=== PATIENT | male | born 1930 | race Caucasian/White ===

== ENCOUNTER 2017-01-22 11:59 | Observation (INO) | payer MEDICARE, BC ==
[2017-01-22 12:40] LABS: Hematocrit 34 % (42-52); Hemoglobin 11.7 g/dl (14.0-18.0); Mean Corpuscular HGB Conc 34 g/dl (31-36); Mean Corpuscular Hemoglobin 30 pg (27-31); Mean Corpuscular Volume 88 fL (80-94); Mean Platelet Volume 9 um3 (7.4-10.4); Red Cell Distribution Width 15 % (10.5-15); White Blood Count 5.7 10^3/ul (3.5-10.8)
[2017-01-22 13:03] LABS: Troponin I 0.01 ng/mL (<0.04)
[2017-01-22 13:20] LABS: TSH (Thyroid Stimulating Horm) 1.26 mcIU/mL (0.34-5.60)
[2017-01-22 13:27] LABS: Albumin 3.6 g/dL (3.2-5.2); Calcium 8.4 mg/dL (8.6-10.3); EGFR African American 95.5 (>60); EGFR Non-African American 74.3 (>60); Globulin 2.1 g/dL (2-4); Magnesium 1.8 mg/dL (1.9-2.7); Total Bilirubin 0.7 mg/dL (0.2-1.0); Total Protein 5.7 g/dL (6.4-8.9)
[2017-01-22] MEDS ORDERED: Lidocaine 1% INJ* 10 MG/ML 30 ML SDV ONE (13:34)
--- NOTE | 2017-01-22 14:17 | RAD ---
Indication: Loss of consciousness. CT of the brain was performed without IV contrast. Ventricular structures are midline. No midline shift is noted. Central and cortical atrophy is noted. Periventricular lucency consistent with chronic ischemic White matter change is noted. Mastoid air cells and paranasal sinuses are otherwise unremarkable. IMPRESSION: Chronic ischemic White matter change with no evidence of mass or hemorrhage.
--- NOTE | 2017-01-22 14:18 | RAD ---
HISTORY: Fall, no other history is provided COMPARISONS: January 30, 2016 TECHNIQUE: Multiple contiguous axial CT scans were obtained of the cervical spine without intravenous contrast, with coronal and sagittal multiplanar reformations. FINDINGS: BRAIN: The visualized brain is unremarkable CENTRAL CANAL: Evaluation of the central canal is limited on CT technique; however, there is no obvious canalicular mass or epidural hemorrhage. ALIGNMENT: There is trace anterolisthesis of C7 on T1. There is a scoliotic curvature of the spine VERTEBRAL BODIES: There is diffuse osteopenia. Is multilevel anterolateral marginal osteophyte formation. There is fusion of C5 and C6. There is no displaced fracture. JOINTS: There is uncovertebral, facet, and atlantoaxial osteoarthritis MUSCULATURE: Unremarkable INTERVERTEBRAL DISCS: There is diffuse loss of intervertebral disc height. AXIAL IMAGES: There is multilevel neural foraminal narrowing. There is no osseous central canal stenosis SOFT TISSUES: Carotid calcifications are noted. A left carotid stent is noted.. The prevertebral fat stripe is preserved. OTHER: None. IMPRESSION: 1. OSTEOPENIA. 2. DEGENERATIVE DISC DISEASE AND OSTEOARTHRITIS. 3. NO ACUTE OSSEOUS INJURY TO THE CERVICAL SPINE
[2017-01-22] MEDS ORDERED: Dextrose 50% Syringe 50 ML* 25 GM/50 ML SYRINGE IV PUSH PRN (15:25)
[2017-01-22] MEDS ORDERED: Acetaminophen TAB* 325 MG PO PRN (15:25)
[2017-01-22] MEDS ORDERED: Ondansetron INJ* 2 MG/ML VIAL IV PRN (15:25)
[2017-01-22] MEDS ORDERED: Magnesium Sulfate 2 GM IV* 2 GM/50 ML BAG IVPB ONE (15:25)
[2017-01-22] MEDS ORDERED: LORazepam TAB(*) 1 MG PO PRN (15:27)
[2017-01-22 15:31] LABS: Urine Bilirubin Negative (Negative); Urine Glucose 1+(50 mg/dL) (Negative); Urine Nitrite Negative (Negative)
[2017-01-22] MEDS: Insulin LISPRO* 1 UNITS UNIT SUBCUT SCH (18:32)
[2017-01-22] MEDS ORDERED: LORazepam INJ* 2 MG/ML 1 ML VIAL IV PUSH ONE (20:16)
[2017-01-22] MEDS ORDERED: LORazepam INJ* 2 MG/ML 1 ML VIAL ONE (20:21)
--- NOTE | 2017-01-22 20:48 | HP ---
CC: [facility] * HISTORY AND PHYSICAL: DATE OF ADMISSION: 01/22/17 PRIMARY CARE PROVIDER: [facility]. ATTENDING PHYSICIAN WHILE IN THE HOSPITAL: Dr. Farheen Iglesias * (report dictated by Aureliano Guerrero NP). CHIEF COMPLAINT: 1. Fall. 2. Question of syncope. HISTORY OF PRESENT ILLNESS: Please preface this report by saying that Mr. Bruno is an 86-year-old male patient with significant underlying progressively getting worse dementia. He comes in today stating that he cannot really remember what happened, he only knows that he went into the bathroom, he heard a bang. The corroborates the story, states that he did fall. It is unclear whether or not he had a syncopal episode or not. I did touch base with the patient's [facility] providers. I spoke to the nurse that was there, she said he was taken up to go to the bathroom, while in the bathroom, he had fallen. She does not believe that he had syncopized, but again cannot confirm or deny this completely. The patient denied having any chest pain today. Denies any shortness of breath. He denies any recent fevers or chills. When asking about medication changes recently, he is unaware of any, although again he does have dementia. I did touch base with the nursing staff at [facility] and they said that about 2 weeks ago, he was started on some Ativan at night and in the morning. He denied currently with me again having any fevers. There has been no diarrhea or vomiting. He does admit to having pain over his left eye where he did strike the walker, according to the nursing staff, but denies having any headache. Denies having any hip or extremity pain and denies having any abdominal discomfort now. He was evaluated in the ED. There was concern for possible syncopal episode, hospital service was asked to evaluate for admission. PAST MEDICAL HISTORY: Significant for: 1. Dementia. 2. Diabetes. 3. Hyperlipidemia. 4. Carotid artery disease. 5. Hypertension. 6. Bullous pemphigoid. 7. History of GI bleed. 8. AFib. 9. Depression. 10. BPH. 11. Insomnia. 12. SAYRA. PAST SURGICAL HISTORY: He has had: 1. Bilateral total knee replacements. 2. Tonsillectomy. 3. Hernia repair. 4. Carotid endarterectomy. 5. Quadriceps repair. 6. TURP. MEDICATIONS: His home meds according to the [facility] list includes: 1. Prednisone 10 mg a day. 2. Diovan 80 mg at bedtime. 3. Senna 1 tablet p.o. at bedtime. 4. MiraLAX 17 g p.o. daily. 5. Paxil 40 mg daily. 6. CellCept 1000 mg p.o. b.i.d. 7. Lopressor 75 mg p.o. b.i.d. 8. Melatonin 3 mg at bedtime as needed. 9. Ativan 1 mg at bedtime as needed. 10. Ativan 0.5 mg in the morning. 11. Lantus 15 units subcu q.a.m. 12. Insulin aspart 4 units subcu b.i.d. 13. Vitamin D3 50,000 units p.o. monthly. 14. Aspirin 81 mg daily. 15. Tylenol Extra Strength 1000 mg p.o. every 8 hours as needed. ALLERGIES TO MEDICATIONS: According to the list include, METFORMIN, PREDNISONE , and REPAGLINIDE. FAMILY HISTORY: Father had a history of CAD. Mother had a history of cancer. SOCIAL HISTORY: He does not smoke. He does not drink. Surrogate decision maker is his , Henrry. He resides at [facility]. REVIEW OF SYSTEMS: There is no documented fever. He denied any significant weight change. There was no double vision. He denies having any ear discharge. There is no rhinorrhea, no sore throat. No thyroid enlargement. Denied having any chest pain. There was no orthopnea, there was no nocturnal dyspnea. There is no abdominal pain. No nausea, no vomiting. No dysuria, no frequency. There was a questionable loss of consciousness. No pruritus or skin ulceration. Review of 14 systems completed, all others were negative. PHYSICAL EXAMINATION GENERAL: At this time, Mr. Bruno is an 86-year-old male patient. He is sitting in the ER stretcher. He does not appear to be in any acute distress. VITAL SIGNS: Blood pressure 133/90 with a pulse of 95, respirations 18, O2 sat 99%, temperature 97.5. HEENT: Head: Atraumatic with the exception he does have significant hematoma and laceration to the left orbit just above the left forehead, which is now again ecchymotic and it has been sutured, otherwise atraumatic. Eyes: EOMs are intact. Sclerae anicteric. NECK: Supple. Throat: Oral mucosa appeared to be dry. No oropharyngeal erythema. LUNGS: Clear to auscultation bilaterally. No wheezes, rales, or rhonchi. HEART: Sounds S1, S2. Irregularly irregular rate. No murmurs, rubs, or gallops. ABDOMEN: Soft, flat, and nontender. Bowel sounds are present. EXTREMITIES: Pulses 2+ throughout. He is able to move all 4 extremities with 5 /5 strength. NEUROLOGICAL: The patient is awake. He is alert to himself only, time and place. Window Tinter equal. Tongue midline. Speech clear. No gross focal deficits. SKIN: His skin is grossly intact with the exception he does have skin incision and sutures noted to the left orbit and to the left zygomatic arch and there is again noted to be some ecchymosis. Otherwise, skin is intact. He does have multiple abrasions to his left arm and left knee, which are covered with dressing. DIAGNOSTIC STUDIES/LAB DATA: His labs today revealed WBC of 5.7, RBC of 3.90, hemoglobin 11.7, hematocrit 34, platelet count 140. INR 0.97. Sodium 129, potassium 4, chloride of 97, bicarb 25, BUN 24, creatinine 0.96, glucose of 180 , lactate 0.9, calcium 8.4, mag 1.8. Total bili 0.7, AST 15, ALT 10, alk phos 31. Troponin 0.01. BNP . The albumin is 3.6. TSH normal at 1.26. Urine is pending. He did have a cervical spine CT, which showed osteopenia, degenerative disk disease, and osteoarthritis. No acute osseous injury of the cervical spine. Brain CT showed chronic ischemic white matter change. No evidence of mass or hemorrhage. EKG obtained today showed atrial fibrillation with an incomplete right bundle branch block, which apparently reviewed to the previous EKG and this has been similar in the past. No acute changes were noted. Old medical records were reviewed. ASSESSMENT AND PLAN: Mr. Bruno is an 86-year-old male patient coming into the hospital today with complaints of fall with concern for syncope. He will be admitted under observation status for: 1. Fall. Again, this could have been a mechanical fall. Certainly polypharmacy could have contributed to this as well as he is on Ativan twice a day. My plan is to go ahead to do a syncope workup because there was a question that he may have fainted, although seems less likely, I am going to go ahead and place him on telemetry, cycle his troponins, and get an echo. Check orthostatic blood pressures and continue to follow. 2. Urinary retention. A catheter was placed here in the ED, but I do not see there was a bladder scan done, so what I would like to do is remove the catheter , bladder scan, and check postvoid residual. If these are elevated, then we will place the Bowles back. In addition to this, he will need a Urology followup that could be done outpatient. 3. Dementia. Continue with supportive care. 4. Diabetes. He is on lispro sliding scale and Lantus. 5. Hyperlipidemia. We will continue his current medical regimen. 6. Hypertension. Continue meds as prescribed. 7. Bullous pemphigoid. Continue his meds as prescribed. 8. Carotid artery disease. Continue his aspirin. 9. History of gastrointestinal bleed. Not an active issue. We will monitor. 10. Atrial fibrillation. He is not on any blood thinners currently due to frequent falls. In addition to this, he has had bleeding episodes in the past and this has been held. 11. Depression. Continue meds as prescribed. 12. Benign prostatic hyperplasia. Again, we are going to go ahead and get post void residuals. 13. History of insomnia. We will continue to monitor and offer supportive care. 14. History of obstructive sleep apnea. We will continue his current medical regimen. 15. DVT prophylaxis. We will place him on heparin subcu. 16. Code status. DNR. TIME SPENT: On the admission was approximately 60 minutes; greater than half the time spent [id number] with the patient obtaining my history and physical, the other half the time was spent going over the plan of care with the patient and implementing plan of care. I did discuss the plan of care with my attending physician, Dr. Iglesias; she is in agreement. AURELIANO GUERRERO, MARIA ANTONIA [id number]/[facility] #: [id number] MTDD
[2017-01-22] MEDS: Mycophenolate Mofetil TAB(*) 500 MG PO SCH ×2 (21:10→21:51)
[2017-01-22] MEDS: Senna TAB PO SCH ×2 (21:10→21:24)
[2017-01-22] MEDS: Docusate CAP* 100 MG PO SCH ×2 (21:10→21:24)
[2017-01-22] MEDS: Metoprolol Tartrate TAB* 25 MG PO SCH ×2 (21:10→21:51)
[2017-01-22] MEDS ORDERED: Metoprolol Tartrate IV* 1 MG/ML 5 ML VIAL IV ONE (21:22)
[2017-01-22] MEDS: Heparin VIAL(*) 5000 UNITS/ML VIAL (FIVE THOUSAND) SUBCUT SCH (21:56)
[2017-01-23] MEDS ORDERED: LORazepam INJ* 2 MG/ML 1 ML VIAL IV PUSH ONE (03:00)
[2017-01-23] MEDS: Heparin VIAL(*) 5000 UNITS/ML VIAL (FIVE THOUSAND) SUBCUT SCH ×2 (04:57→13:19)
[2017-01-23 05:18] LABS: Hematocrit 35 % (42-52); Hemoglobin 11.7 g/dl (14.0-18.0); Mean Corpuscular HGB Conc 34 g/dl (31-36); Mean Corpuscular Hemoglobin 30 pg (27-31); Mean Corpuscular Volume 89 fL (80-94); Mean Platelet Volume 9 um3 (7.4-10.4); Red Blood Count 3.91 10^6/ul (4.0-5.4); Red Cell Distribution Width 15 % (10.5-15); White Blood Count 6.3 10^3/ul (3.5-10.8)
[2017-01-23 07:43] LABS: BUN/Creatinine Ratio 20.8 (8-20); Calcium 8.5 mg/dL (8.6-10.3); EGFR African American 90.1 (>60); Potassium 3.4 mmol/L (3.5-5.0)
--- NOTE | 2017-01-23 08:59 | RAD ---
HISTORY: Fall, confusion COMPARISONS: February 14, 2016 VIEWS:1: Single frontal portable view of the chest at 8:50 AM FINDINGS: LINES AND TUBES: None. CARDIOMEDIASTINAL SILHOUETTE: The cardiomediastinal silhouette is normal for portable technique. PLEURA: The costophrenic angles are sharp. No pleural abnormalities are noted. LUNG PARENCHYMA: There is hyperinflation. ABDOMEN: The upper abdomen is clear. There is no subphrenic gas. BONES AND SOFT TISSUES: Degenerative changes are noted along the spine. IMPRESSION: NO ACTIVE CARDIOPULMONARY DISEASE.
[2017-01-23] MEDS ORDERED: PARoxetine HCL TAB* 40 MG PO SCH (09:00)
[2017-01-23] MEDS ORDERED: QUEtiapine TAB* 25 MG PO SCH ×2 (09:00→21:00)
[2017-01-23] MEDS ORDERED: Insulin GLARGINE(*) 1 UNITS UNIT SUBCUT SCH (09:00)
[2017-01-23] MEDS ORDERED: LORazepam TAB(*) 0.5 MG PO SCH (09:00)
[2017-01-23] MEDS ORDERED: Aspirin EC Low Dose* 81 MG TAB.EC PO SCH (09:00)
[2017-01-23] MEDS ORDERED: Valsartan TAB* 80 MG PO SCH (09:00)
[2017-01-23] MEDS ORDERED: predniSONE TAB* 10 MG PO SCH (09:00)
[2017-01-23] MEDS: Insulin LISPRO* 1 UNITS UNIT SUBCUT SCH ×2 (09:24→13:27)
[2017-01-23 09:43] VITALS: BP 122/59
[2017-01-23] MEDS: Metoprolol Tartrate TAB* 25 MG PO SCH (09:58)
[2017-01-23] MEDS: Polyethylene Glycol 3350* 17 GM PACKET PO SCH ×2 (10:00→13:19)
[2017-01-23] MEDS: Mycophenolate Mofetil TAB(*) 500 MG PO SCH (10:21)
[2017-01-23] MEDS ORDERED: Potassium Chlor TAB* 20 MEQ TAB.ER PO ONE (12:25)
--- NOTE | 2017-01-23 16:52 | DS ---
CC: [facility] * DISCHARGE SUMMARY: DATE OF ADMISSION: 01/22/17 DATE OF DISCHARGE: 01/23/17 PRIMARY CARE PROVIDER: [facility]. ATTENDING PHYSICIAN WHILE IN THE HOSPITAL: Jami Ahumada MD * (report dictated by Aureliano Guerrero NP) PRINCIPAL DIAGNOSIS: Fall. SECONDARY DIAGNOSES: Include: 1. Dementia. 2. Diabetes. 3. Hyperlipidemia. 4. Coronary artery disease. 5. Hypertension. 6. Bullous pemphigoid. 7. History of gastrointestinal bleed. 8. Atrial fibrillation. 9. Depression. 10. Benign prostatic hypertrophy. 11. Insomnia. 12. Obstructive sleep apnea. DISCHARGE MEDICATIONS: Include: 1. New medication Seroquel 12.5 mg p.o. b.i.d. for diagnosis of dementia with psychotic features. 2. He is to discontinue his Ativan. 3. Acetaminophen 1000 mg p.o. every 8 hours as needed p.r.n. pain. 4. Senna 1 tablet p.o. at bedtime for constipation. 5. Prednisone 10 mg p.o. daily for bullous pemphigoid. 6. Paxil 40 mg p.o. daily for depression. 7. Insulin aspart 40 units subcu b.i.d. for diabetes type 2. 8. MiraLAX 17 g p.o. daily for constipation. 9. Lopressor 75 mg p.o. b.i.d. for history of atrial fibrillation. 10. Melatonin 3 mg at bedtime as needed for insomnia. 11. Lantus 15 units subcu q.a.m. for history of diabetes. 12. Valsartan 80 mg p.o. daily for hypertension. 13. Vitamin D3 50,000 units p.o. monthly. 14. CellCept 1000 mg p.o. b.i.d. for bullous pemphigoid. 15. Aspirin 81 mg daily for history of carotid artery disease. HISTORY OF PRESENTING ILLNESS AND HOSPITAL COURSE: I refer you to my H and P dictated yesterday for further details. In short, Mr. Bruno is an 86-year- old male patient who sustained a fall at [facility]. There was concern for possible syncope, although this seemed less likely as the nurse that was with him yesterday felt that he probably had a mechanical fall and he tripped and fell over his walker. The patient was evaluated in the ED. There was concern because this was a possible syncope and the fact that he had extensive laceration to the top part of his eye and the concern for syncope, and the hospitalist service was asked to evaluate and consult. Last night, he was extremely restless. He was up almost every hour, 3 times an hour, trying to get out of bed. He was transitioned over to Seroquel due to history of dementia with psychotic-type features. He was started on Seroquel low dose initially 25 b.i.d. and this was reduced down to 12.5 mg p.o. b.i.d. Unfortunately, he got Seroquel 25 mg this morning. In addition to this, he did receive Ativan as well, which now the patient is drowsy. He does awaken to verbal stimuli and painful stimuli. He is awake and he does appear to be at his baseline. He was observed on telemetry with no events overnight. Orthostatic blood pressures were obtained in the emergency department. His blood pressure lying was 133/90, sitting was 123/51, and then standing was 155/ 95. He unfortunately was unable to obtain an echo today because he was very restless, but again because there were no events of telemetry and serial troponins were negative and the fact that the syncope was less likely as it was observed by the staff at [facility] that he appeared to possibly have a mechanical fall and did not faint. I think syncope was less likely, so we forego the echo. There was a report from [facility] yesterday that he was drowsy , particularly first thing in the morning, so the Ativan was stopped and we changed him over to Seroquel. He appears to be tolerating this well so far. The patient was felt to be appropriate for discharge. He was examined by my attending, Dr. Ahumada, who felt that he was appropriate for discharge today and also it was felt that the longer that we keep him here unnecessarily, his dementia may actually become worse, so we want to get him back to his environment. We both felt that he was safe for discharge today. He will need sutures removed in 10 to 14 days, which can be done at the [facility]. PHYSICAL EXAMINATION: On discharge reveals vital signs of blood pressure 122/59 with a pulse of 59, respirations 16, O2 sat was 100%, temperature 99.3. General : At this time, Mr. Bruno is an 88-year-old male patient. He is sitting in the bed. He does not appear to be in any acute distress. HEENT: Eyes, EOMs intact. Sclerae anicteric. He does have a significant amount of ecchymosis noted over the left eye and swelling as well, which has progressed since yesterday. However, I will recommend ice packs for this. He is able to open the eye and his EOMs were intact. Pupils reactive to light. Neck: Supple. Throat: Oral mucosa appears to be moist. No oropharyngeal erythema. Heart sounds S1, S2, irregular rate. No murmurs, rubs, or gallops. Lungs: Clear to auscultation. No wheezes, rales, or rhonchi. Abdomen is soft, flat, nontender. Neurologically, he is drowsy, but he does open his eyes and he follows simple commands currently. He is moving all 4 extremities. He had no gross focal deficits. His skin was intact with the exception he has got a laceration noted to the left eye, which does not appear to be infected. LABORATORY DATA/DIAGNOSTIC STUDIES: His labs on discharge reveal a WBC of 6.3, RBC of 3.91, hemoglobin of 11.7, hematocrit 35, and platelet count 135. INR 0.97. Sodium is 131, potassium 3.4, which is being replaced, this will need to be followed up, he has a chloride of 98, his BUN is normal, creatinine 1.01, glucose of 216. Serial troponins were negative at 0.01. Calcium 8.5. Urine obtained was negative as well. He is currently no longer retaining urine after a bladder scan. His bladder scan was less than 400 after he was incontinent of urine. Chest x-ray today showed no active cardiopulmonary disease. He had EKG obtained this morning, which showed atrial fibrillation, rate of 100. No ST elevations or T- wave inversion, does appear to have an incomplete right bundle- branch block, which is similar to his previous EKGs. He did have a cervical spine CT as well, which revealed osteopenia, degenerative disk disease, and osteoarthritis. No acute osseous injury to the cervical spine. He had a brain CT done yesterday as well, which revealed chronic ischemic white matter change without evidence of mass or hemorrhage. Old medical records reviewed. This is a complex medical case, refer to medical chart for further details. STATUS DURING HOSPITALIZATION: Observation. CONDITION ON DISCHARGE: Stable. ISSUES TO BE ADDRESSED ON FOLLOWUP: 1. Falls. Again at this point, I would incorporate safety monitoring, bed alarms per nursing discretion, and ambulating with assistance only, and again keep him close to the nurses' station at [facility] if possible. 2. AFib. Continue meds as prescribed. 3. Dementia. Again, with psychotic features at times. I would continue the Seroquel. He can follow with the outpatient setting. 4. Diabetes. Continue meds as prescribed. 5. Hyperlipidemia. Continue meds as prescribed. 6. History of CAD, stable. Continue meds as prescribed. 7. Hypertension. Continue meds as prescribed. 8. Bullous pemphigoid. Continue his meds. 9. Depression. Continue with supportive care, meds. 10. BPH. Again, he was incontinent here. He did not retain urine when we scanned him. 11. Insomnia. Again, continue melatonin. I would try to avoid benzodiazepines. 12. SAYRA. He is not compliant with the CPAP, he can follow with primary providers at [facility]. 13. Laceration. He is to have the sutures removed in 10 to 14 days. ISSUES TO RETURN TO THE HOSPITAL: Include but are not limited to chest pain, fevers, chills, nausea, vomiting, shortness of breath, or any other worrisome symptoms. TIME SPENT ON DISCHARGE: Approximately 40 minutes were spent, greater than half the time spent [id number] with the patient going over the discharge plan , another half the time was spent implementing the discharge plan. I did discuss the discharge plan with my attending, Dr. Ahumada; she is in agreement. AURELIANO GUERRERO, MARIA ANTONIA [id number]/[facility] #: [id number] GHANSHYAM
--- NOTE | 2017-01-23 17:24 | ED ---
Cliff Turner Thomas, scribed for Prashanth Reza MD on 01/22/17 at 1216 . Head Injury - HPI Summary HPI Summary: The patient is an 86 y/o M who lives in a [facility] BIB[facility] c/o a laceration to his left forehead s/p an unwitnessed fall that occurred shortly prior to arrival. Per EMS, the patient had just taken a rather messy BM when he fell while walking. The patient has a Hx of dementia and does not remember the fall, but per EMS this appears to be baseline. Per EMS, he was A&Ox3 at the scene of the fall. Per EMS, it is unclear whether the patient suffered LOC, although he was alert a minute after the fall when he was found. He denies any neck pain, abd pain, back pain, dizziness, blurred vision, and ALVARADO. Per EMS, he is NOT taking any blood thinners. Per EMS, he is on beta-blockers. PMHx: A-Fib, DM, HTN , and HLD. PSHx: bilateral knee replacement, tonsillectomy, and hernia surgery. SHx: no smoking, no alcohol use, no illicit drug use. - History Of Current Complaint Stated Complaint: FALL Time Seen by Provider: 01/22/17 12:07 Hx Obtained From: Patient, EMS Mechanism Of Injury: Fall From A Standing Position Onset/Duration: Started Minutes Ago - today shortly prior to arrival, Still Present Location of Head Injury: Other: - laceration to left forehead Aggravating Factor(s): Other: - nothing Alleviating Factor(s): Other: - nothing Associated Signs And Symptoms: LOC Duration Unknown - potential, Other: - NEG: neck pain, abd pain, back pain, dizziness, blurred vision, ALVARADO - Allergies/Home Medications Allergies/Adverse Reactions: Allergies Allergy/AdvReac Type Severity Reaction Status Date / Time Repaglinide [From Prandin] Allergy Unknown Verified 04/11/16 09:56 Reaction Details Metformin AdvReac Intermediate Diarrhea Verified 04/11/16 09:56 Prednisone AdvReac Intermediate Anxiety Verified 04/11/16 09:56 Home Medications: Home Medications Acetaminophen [Acetaminophen Extra Stren] 1,000 mg PO Q8HR PRN 01/22/17 [ History Confirmed 01/22/17] Aspirin EC Low Dose* [Ecotrin EC Low Dose 81 MG*] 81 mg PO DAILY 01/22/17 [ History Confirmed 01/22/17] Melatonin (NF) 3 mg PO BEDTIME PRN 01/22/17 [History Confirmed 01/22/17] Metoprolol Tartrate TAB* [Lopressor TAB*] 75 mg PO BID 01/22/17 [History Confirmed 01/22/17] Mycophenolate Mofetil CAP(*) [Cellcept CAP(*)] 1,000 mg PO BID 01/22/17 [ History Confirmed 01/22/17] PARoxetine HCL TAB* [Paxil TAB*] 40 mg PO DAILY 01/22/17 [History Confirmed ] Polyethylene Glycol 3350* [Miralax*] 17 gm PO DAILY 01/22/17 [History Confirmed 01/22/17] Sennosides-Docusate Sodium [Senna-S 8.6-50 mg] 1 tab PO BEDTIME 01/22/17 [ History Confirmed 01/22/17] Valsartan TAB* [Diovan TAB*] 80 mg PO DAILY 01/22/17 [History Confirmed 01/22/17 ] PMH/Surg Hx/FS Hx/Imm Hx Previously Healthy: No Endocrine/Hematology History: Reports: Hx Blood Transfusions, Hx Diabetes, Hx Anemia - ACUTE BLOOD LOSS WITH TRANSFUSION 12/2013, Hx Unexplained Bleeding Denies: Hx Thyroid Disease Cardiovascular History: Reports: Hx Coronary Artery Disease, Hx Hypercholesterolemia, Hx Hypertension, Other Cardiovascular Problems/Disorders - left endarterectomy, A-fib Denies: Hx Congestive Heart Failure, Hx Pacemaker/ICD Respiratory History: Reports: Other Respiratory Problems/Disorders Denies: Hx Asthma, Hx Chronic Obstructive Pulmonary Disease (COPD), Hx Pneumonia, Hx Sleep Apnea GI History: Reports: Hx Gastroesophageal Reflux Disease, Hx Gastrointestinal Bleed - per previous records, Hx Hiatal Hernia, Other GI Disorders - esophagitis with bleed Denies: Hx Gall Bladder Disease, Hx Ulcer History: Reports: Hx Benign Prostatic Hyperplasia, Other Problems/ Disorders - BPH Musculoskeletal History: Reports: Hx Arthritis - mild - fingers, Hx Back Problems - LOWER BACK Denies: Hx Gout, Hx Scoliosis, Hx Tendonitis Sensory History: Reports: Hx Cataracts, Hx Contacts or Glasses, Hx Hearing Aid - will not wear Denies: Hx Eye Injury, Hx Eye Prosthesis, Hx Glaucoma, Hx Legally Blind, Hx Macular Degeneration, Hx Vision Problem, Hx Deafness, Hx Hearing Problem Opthamlomology History: Reports: Hx Cataracts, Hx Contacts or Glasses Denies: Hx Eye Injury, Hx Eye Prosthesis, Hx Glaucoma, Hx Legally Blind, Hx Macular Degeneration, Hx Vision Problem Neurological History: Reports: Hx Dementia - forgetfulness - remembers details he doesn't Denies: Hx Developmental Delay, Hx Headaches, Hx Migraine, Hx Nerve Disease, Hx Seizures, Hx Spinal Cord Injury, Hx Transient Ischemic Attacks (TIA) Psychiatric History: Reports: Hx Anxiety - HX OF, CONTROL MED, Hx Depression Denies: Hx Panic Disorder, Hx Suicide Attempt, Hx of Violent Episodes Against Others - Cancer History Hx Chemotherapy: Yes - Surgical History Surgery Procedure, Year, and Place: tonsilectomy; BL hernia surgery; L carotid stent, bilateral knee replacement, LT KNEE TENDON 05/14/14. Hx Anesthesia Reactions: No - Immunization History Date of Influenza Vaccine: 03/2013 Infectious Disease History: Denies: Hx Clostridium Difficile, Hx Hepatitis, Hx Human Immunodeficiency Virus (HIV), Hx of Known/Suspected MRSA, History Other Infectious Disease, Traveled Outside the [place] in Last 30 Days - Family History Known Family History: Positive: Hypertension - Social History Alcohol Use: Occasionally Alcohol Amount: glass of wine; occasional martini Hx Substance Use: No Substance Use Type: Reports: None Hx Tobacco Use: No Smoking Status (MU): Never Smoked Tobacco Review of Systems Negative: Blurred Vision Negative: Abdominal Pain Negative: Other - NEG: neck pain, back pain Positive: Other - POS: laceration to L forehead Neurological: Other - POS: potential LOC (though fall was unwitnessed); NEG: dizziness Negative: Headache All Other Systems Reviewed And Are Negative: Yes Physical Exam - Summary Physical Exam Summary: VITAL SIGNS: Reviewed. GENERAL: ~Patient is a 4 cm laceration to the left forehead. well-developed and nourished male who is lying comfortable in the stretcher. ~Patient is not in any acute respiratory distress. HEAD AND FACE: There is a . No ecchymosis, hematomas or skull depressions. No sinus tenderness. EYES: PERRLA, EOMI x 2, No injected conjunctiva, no nystagmus. EARS: Hearing grossly intact. Ear canals and tympanic membranes are within normal limits. MOUTH: Oropharynx within normal limits. NECK: Supple, trachea is midline, no adenopathy, no JVD, no carotid bruit, no c- spine tenderness, neck with full ROM. CHEST: Symmetric, no tenderness at palpation LUNGS: Clear to auscultation bilaterally. No wheezing or crackles. CVS: Regular rate and rhythm, S1 and S2 present, no murmurs or gallops appreciated. ABDOMEN: There is no C-Spine tenderness. Soft, non-tender. No signs of distention. No rebound no guarding, and no masses palpated. Bowel sounds are normal. EXTREMITIES: FROM in all major joints, no edema, no cyanosis or clubbing. NEURO: Alert and oriented x 3. No acute neurological deficits. Speech is normal and follows commands. SKIN: Dry and warm Triage Information Reviewed: Yes Vital Signs On Initial Exam: Temp 97.5, HR 86, RR 16, SaO2 95, BP 152/100 Vital Signs Reviewed: Yes Procedures - Laceration/Wound Repair 1 Location: head - left orbit Description: Linear Anesthesia: 1.0%, Lido Length, Depth and Shape: 3 cm. He has contuse tissue surrounding the lacerations Betadine Prep?: No - 5.0% ethanol prep Irrigated w/ Saline (ccs): 0 - I irrigated with normal saline. Number of Sutures: 35 - (35 total lacerations placed between three lacerations) 2 Location: head - left orbit Description: Linear Anesthesia: 1.0%, Lido Length, Depth and Shape: 5cm. He has contuse tissue surounding the laceration Betadine Prep?: No - 5% ethanol prep Irrigated w/ Saline (ccs): 0 - I irrigatd with normal saline Number of Sutures: 35 - (35 total sutures placed between three lacerations) 3 Location: head - Left side of the left cheek Description: Linear Anesthesia: 1.0%, Lido Length, Depth and Shape: 2cm. There is contuse tissue surrounding the laceration Betadine Prep?: No - 5.0% ethanol Irrigated w/ Saline (ccs): 0 - I irrigated with saline Number of Sutures: 35 - (I placed a total of 35 sutures on the three lacerations ) Diagnostics - Vital Signs Vital Signs Temp Pulse Resp BP Pulse Ox 01/22/17 15:00 133/90 01/22/17 14:54 96 165/94 99 01/22/17 14:48 99 01/22/17 14:45 107 163/84 99 01/22/17 14:00 91 99 01/22/17 13:11 92 98 01/22/17 12:30 89 16 136/69 96 01/22/17 12:15 97.5 F 99 16 152/100 95 01/22/17 12:12 88 13 98 01/22/17 12:11 135/82 - Laboratory Lab Results: Lab Results 01/22/17 01/22/17 01/22/17 Range/Units 12:25 12:25 12:25 WBC 5.7 (3.5-10.8) 10^3/ul RBC 3.90 L (4.0-5.4) 10^6/ul Hgb 11.7 L (14.0-18.0) g/dl Hct 34 L (42-52) % MCV 88 (80-94) fL MCH 30 (27-31) pg MCHC 34 (31-36) g/dl RDW 15 (10.5-15) % Plt Count 140 L (150-450) 10^3/ul MPV 9 (7.4-10.4) um3 Neut % (Auto) 74.7 (38-83) % Lymph % (Auto) 18.1 L (25-47) % Camp % (Auto) 6.1 (1-9) % Eos % (Auto) 0.6 (0-6) % Baso % (Auto) 0.5 (0-2) % Absolute Neuts (auto) 4.2 (1.5-7.7) 10^3/ul Absolute Lymphs (auto) 1.0 (1.0-4.8) 10^3/ul Absolute Monos (auto) 0.3 (0-0.8) 10^3/ul Absolute Eos (auto) 0 (0-0.6) 10^3/ul Absolute Basos (auto) 0 (0-0.2) 10^3/ul Absolute Nucleated RBC 0 10^3/ul Nucleated RBC % 0.1 INR (Anticoag Therapy) (0.89-1.11) Sodium 129 L (133-145) mmol/L Potassium 4.0 (3.5-5.0) mmol/L Chloride 97 L (101-111) mmol/L Carbon Dioxide 25 (22-32) mmol/L Anion Gap 7 (2-11) mmol/L BUN 24 (6-24) mg/dL Creatinine 0.96 (0.67-1.17) mg/dL Est GFR ( Amer) 95.5 (>60) Est GFR (Non-Af Amer) 74.3 (>60) BUN/Creatinine Ratio 25.0 H (8-20) Glucose 180 H (70-100) mg/dL Lactic Acid 0.9 (0.5-2.0) mmol/L Calcium 8.4 L (8.6-10.3) mg/dL Magnesium 1.8 L (1.9-2.7) mg/dL Total Bilirubin 0.70 (0.2-1.0) mg/dL AST 15 (13-39) U/L ALT 10 (7-52) U/L Alkaline Phosphatase 31 L (34-104) U/L Troponin I 0.01 (<0.04) ng/mL B-Natriuretic Peptide ( - 100) pg/mL Total Protein 5.7 L (6.4-8.9) g/dL Albumin 3.6 (3.2-5.2) g/dL Globulin 2.1 (2-4) g/dL Albumin/Globulin Ratio 1.7 (1-3) TSH 1.26 (0.34-5.60) mcIU/mL Urine Color Urine Appearance Urine pH (5-9) Ur Specific [place] (1.010-1.030) Urine Protein (Negative) Urine Ketones (Negative) Urine Blood (Negative) Urine Nitrate (Negative) Urine Bilirubin (Negative) Urine Urobilinogen (Negative) Ur Leukocyte Esterase (Negative) Urine Glucose (Negative) 01/22/17 01/22/17 01/22/17 Range/Units 12:25 12:25 15:20 WBC (3.5-10.8) 10^3/ul RBC (4.0-5.4) 10^6/ul Hgb (14.0-18.0) g/dl Hct (42-52) % MCV (80-94) fL MCH (27-31) pg MCHC (31-36) g/dl RDW (10.5-15) % Plt Count (150-450) 10^3/ul MPV (7.4-10.4) um3 Neut % (Auto) (38-83) % Lymph % (Auto) (25-47) % Camp % (Auto) (1-9) % Eos % (Auto) (0-6) % Baso % (Auto) (0-2) % Absolute Neuts (auto) (1.5-7.7) 10^3/ul Absolute Lymphs (auto) (1.0-4.8) 10^3/ul Absolute Monos (auto) (0-0.8) 10^3/ul Absolute Eos (auto) (0-0.6) 10^3/ul Absolute Basos (auto) (0-0.2) 10^3/ul Absolute Nucleated RBC 10^3/ul Nucleated RBC % INR (Anticoag Therapy) 0.97 (0.89-1.11) Sodium (133-145) mmol/L Potassium (3.5-5.0) mmol/L Chloride (101-111) mmol/L Carbon Dioxide (22-32) mmol/L Anion Gap (2-11) mmol/L BUN (6-24) mg/dL Creatinine (0.67-1.17) mg/dL Est GFR ( Amer) (>60) Est GFR (Non-Af Amer) (>60) BUN/Creatinine Ratio (8-20) Glucose (70-100) mg/dL Lactic Acid (0.5-2.0) mmol/L Calcium (8.6-10.3) mg/dL Magnesium (1.9-2.7) mg/dL Total Bilirubin (0.2-1.0) mg/dL AST (13-39) U/L ALT (7-52) U/L Alkaline Phosphatase (34-104) U/L Troponin I (<0.04) ng/mL B-Natriuretic Peptide 460 H ( - 100) pg/mL Total Protein (6.4-8.9) g/dL Albumin (3.2-5.2) g/dL Globulin (2-4) g/dL Albumin/Globulin Ratio (1-3) TSH (0.34-5.60) mcIU/mL Urine Color Yellow Urine Appearance Clear Urine pH 6.0 (5-9) Ur Specific [place] 1.014 (1.010-1.030) Urine Protein Negative (Negative) Urine Ketones Trace H (Negative) Urine Blood Negative (Negative) Urine Nitrate Negative (Negative) Urine Bilirubin Negative (Negative) Urine Urobilinogen Negative (Negative) Ur Leukocyte Esterase Negative (Negative) Urine Glucose 1+(50 mg/dl) H (Negative) Result Diagrams: 01/23/17 05:05 01/23/17 05:05 Lab Statement: Any lab studies that have been ordered have been reviewed, and results considered in the medical decision making process. - CT CT C-Spine CT Interpretation: No Acute Changes - 1. OSTEOPENIA. 2. DEGENERATIVE DISC DISEASE AND OSTEOARTHRITIS. 3. NO ACUTE OSSEOUS INJURY TO THE CERVICAL SPINE CT Interpretation Completed By: Radiologist CT Brain CT Interpretation: No Acute Changes - Chronic ischemic White matter change with no evidence of mass or hemorrhage. CT Interpretation Completed By: Radiologist - EKG 14:47 Cardiac Rate: NL - 96 BPM EKG Interpretation: A-Fib. Similar to previous EKG on 04/11/14. Re-Evaluation - Re-Evaluation Second Eval Re-Evaluation Time: 14:36 Change: Unchanged Comment: After discussing more with the patient and his , it is still unclear whether the patient had a syncopal episode or not. The patient does not know if he had LOC. Head Injury Course/Dx Assessment/Plan: The patient is an 86 y/o M who lives in a [facility] BIB[facility] c/ o a laceration to his left forehead s/p an unwitnessed fall that occurred shortly prior to arrival. Per EMS, the patient had just taken a rather messy BM when he fell while walking. The patient has a Hx of dementia and does not remember the fall, but per EMS this appears to be baseline. Per EMS, he was A& Ox3 at the scene of the fall. Per EMS, it is unclear whether the patient suffered LOC, although he was alert a minute after the fall when he was found. He denies any neck pain, abd pain, back pain, dizziness, blurred vision, and ALVARADO. Per EMS, he is NOT taking any blood thinners. Per EMS, he is on beta- blockers. PMHx: A-Fib, DM, HTN, and HLD. PSHx: bilateral knee replacement, tonsillectomy, and hernia surgery. SHx: no smoking, no alcohol use, no illicit drug use. Test results are without significant abnormality except a slight anemia, sodium 129, glucose 180, magnesium 1.8, and BNP 460. Troponin was 0.01 x2 taken four hours apart. Even though the patient has a GCS of 15, the patient had a head contusion; therefore I decided to order a CT Head and CT C-Spine. CT Brain reveals Chronic ischemic White matter change with no evidence of mass or hemorrhage. CT C-Spine reveals 1. OSTEOPENIA. 2. DEGENERATIVE DISC DISEASE AND OSTEOARTHRITIS. 3. NO ACUTE OSSEOUS INJURY TO THE CERVICAL SPINE. While in the ED course, I repaired the lacerations. He was given a tetanus booster because he does not know the last time he received a tetanus booster. The patient tried to urinate multiple times but was unable to urinate. He was having urinary retention. Therefore, we placed a Bowles catheter, which drained 500 cubic centimeters of urine. At this point, the patient is more stable. I discussed the case with the patients because the patient is demented at this point. We still do not know if the fall was an accidental/mechanical fall versus a syncopal episode. Therefore, I discussed the case with Dr. Iglesias, who accepts the patient for admission. He is hemodynamically stable and alert but NOT oriented. - Diagnoses Provider Diagnoses: Syncope, Laceration, Head contusion - Physician Notifications Discussed Care Of Patient With: Farheen Iglesias Time Discussed With Above Provider: 14:50 Instructed by Provider To: Other - I consulted with Dr. Iglesias, hospitalist, regarding patient care. She will send Aureliano Guerrero NP, to assess the patient. Discharge - Discharge Plan Condition: Good Disposition: RESIDENTIAL FACILITY The documentation as recorded by the Cliff campbell Thomas accurately reflects the service I personally performed and the decisions made by me, Prashanth Reza MD.
== END 2017-01-23 16:25 ==
LOC: ED 11:59 → MEDTELE 15:21
PROVIDERS: ADMIT Hospitalist; ATTEND Internal Medicine
DX: I48.91 Unspecified atrial fibrillation (principal); S01.81XA Laceration without foreign body of other part of head, initial encounter; W19.XXXA Unspecified fall, initial encounter; Y92.129 Unspecified place in nursing home as the place of occurrence of the external cause; R33.9 Retention of urine, unspecified; Z91.81 History of falling; E11.9 Type 2 diabetes mellitus without complications; Z79.4 Long term (current) use of insulin; I10 Essential (primary) hypertension; E78.5 Hyperlipidemia, unspecified; F03.90 Unspecified dementia, unspecified severity, without behavioral disturbance, psychotic disturbance, mood disturbance, and anxiety; L12.0 Bullous pemphigoid; I25.10 Atherosclerotic heart disease of native coronary artery without angina pectoris; N40.0 Benign prostatic hyperplasia without lower urinary tract symptoms; G47.33 Obstructive sleep apnea (adult) (pediatric); F32.9 Major depressive disorder, single episode, unspecified; Z79.899 Other long term (current) drug therapy; Z88.8 Allergy status to other drugs, medicaments and biological substances; Z96.653 Presence of artificial knee joint, bilateral
CPT/HCPCS: 12014; 36415; 70450; 71010; 72125; 80048; 80053; 81003; 83605; 83735; 83880; 84443; 84484; 85025; 85610; 87641; 93005; 93308; 96365; 96372; 96375; 96376; 99284; A9270-GY; G0378; G8978-GP-CL; G8979-GP-CI; J1644; J2001; J2060; J3475; J7512

== ENCOUNTER 2017-08-25 10:00 | Emergency (ER) | payer MEDICARE ==
[2017-08-25] MEDS ORDERED: NS 0.9% 1000 ML* 1,000 ML IV SCH (10:15)
[2017-08-25 10:54] LABS: ABS Basophils 0.1 10^3/ul (0-0.2); ABS Eosinophils 0.1 10^3/ul (0-0.6); ABS Lymphocytes 1.2 10^3/ul (1.0-4.8); ABS Monocytes 0.3 10^3/ul (0-0.8); ABS Neutrophils 5.5 10^3/ul (1.5-7.7); ABS Nucleated RBC 0 10^3/ul; Hematocrit 31 % (42-52); Hemoglobin 10.1 g/dl (14.0-18.0); Lymphocyte % 16.4 % (25-47); Mean Corpuscular HGB Conc 33 g/dl (31-36); Mean Corpuscular Hemoglobin 29 pg (27-31); Mean Corpuscular Volume 88 fL (80-94); Mean Platelet Volume 9 um3 (7.4-10.4); Nucleated Red Blood Cells % 0; Platelet Count 91 10^3/ul (150-450); Red Blood Count 3.46 10^6/ul (4.0-5.4); Red Cell Distribution Width 16 % (10.5-15); White Blood Count 7.1 10^3/ul (3.5-10.8)
[2017-08-25 10:58] LABS: INR 0.99 (0.77-1.02)
[2017-08-25 11:07] LABS: EGFR Non-African American 56.3 (>60)
--- NOTE | 2017-08-25 11:29 | RAD ---
INDICATION: Fall COMPARISON: Chest x-ray dated January 23, 2017 TECHNIQUE: Single AP portable view of the chest was obtained. FINDINGS: Image quality is compromised due to the relative inferiority of a portable chest x-ray. The heart and mediastinum exhibit normal size and contour. The lungs are grossly clear. There is no evidence of a large pleural effusion. Visualized bones are normal for the patient's age. IMPRESSION: No radiographic evidence for acute cardiopulmonary abnormality on this portable chest x-ray.
--- NOTE | 2017-08-25 11:48 | RAD ---
indication: Left eye bruising and forehead laceration after a fall COMPARISON: CT of the brain dated January 22, [address] of the cervical spine dated January 22, [address] scan of the brain, maxillofacial bones and c-spine was performed without intravenous contrast enhancement. Contiguous axial sections were obtained from the lung apices through the vertex of the skull. BRAIN: The ventricles, cisterns and sulci exhibit symmetrical involutional changes. There is moderate periventricular and subcortical white matter hypoattenuation most consistent with chronic microvascular disease and not significantly changed from the prior CT of the brain. No significant focal abnormality or mass effect is seen. The clayton-white differentiation is adequately maintained. There is no evidence for intracranial hemorrhage. There is mild thickening, infiltration and subcutaneous air in the subcutaneous tissue overlying the left frontal bone. There is no underlying calvarial fracture. The mastoid air cells are appropriately aerated. FACIAL BONES: Bones: There is no displaced fracture or dislocation. The orbital rim is intact. The zygomatic arch is intact. The pterygoid plates are intact Orbits: The globes are round. The optic nerves are symmetric. The extraocular musculature is normal. There is no post septal or intraconal inflammatory change. There is no retrobulbar hematoma. Paranasal Sinuses: The paranasal sinuses are clear. C-SPINE: Depicted best on the sagittal plane images there is a minimally displaced fracture through the base of the dens (sagittal image 55 of 109). There is approximately 40 degrees of posterior angulation at the fracture site. Immediately posterior to the dens there is thickening of the transverse ligament consistent with traumatic hematoma formation. There are nondisplaced fractures bilaterally at the posterior arches of the C1 (axial image 27). Bilateral atraumatic fracture there is nonspecific straightening of the normal cervical lordosis, loss of intervertebral disc height and multilevel marginal osteophyte formation. There is no significant prevertebral soft tissue swelling. There is no hyperdense material in the cervical canal to indicate hemorrhage. The visualized musculature and soft tissues are normal. There is advanced calcified atherosclerosis of the bilateral carotid bulbs, arch of the aorta and major branch vessels. There is no gross lymphadenopathy visualized. The visualized portion of the lung apices are clear. IMPRESSION: 1. No calvarial fracture or acute intracranial hemorrhage. 2. No facial bone fractures. 3. There is a type II dens fracture exhibiting approximately 40 degrees of posterior angulation and nondisplaced fractures through the bilateral posterior bodies of the C1 vertebral body. The cervical spine fracture was reported to Dr. Quinn over the telephone at 1130 hours on August 25, 2017.
[2017-08-25] MEDS ORDERED: Bacitracin OINTMENT* 0.5% 0.5 oz TUBE ONE (13:13)
[2017-08-25] MEDS ORDERED: Bacitracin OINTMENT* 0.5% 0.5 oz TUBE TOPICAL ONE (13:22)
[2017-08-25 14:49] VITALS: BP 121/84
--- NOTE | 2017-08-25 17:38 | ED ---
Gary Turner Tiffany, scribed for Cosme uQinn MD on 08/25/17 at 1042 . Laceration/Wound HPI - HPI Summary HPI Summary: The patient is an 86 year old M BIBA c/o facial laceration s/p mechanical fall tripping on a wire minutes ago. Symptoms aggravated by nothing and alleviated by nothing. Denies vision changes, neck pain, knee pain, ankle pain, arm pain. Patient has baseline dementia. - History of Current Complaint Stated Complaint: FALL Time Seen by Provider: 08/25/17 10:15 Hx Obtained From: Patient Onset/Duration: Lasting Minutes, Still Present Aggravating: Nothing Alleviating: Nothing Associated Signs & Symptoms: Negative - vision changes, neck pain, knee pain, ankle pain, arm pain - Additional Pertinent History Primary Care Physician: [id number] - Allergy/Home Medications Allergies/Adverse Reactions: Allergies Allergy/AdvReac Type Severity Reaction Status Date / Time metformin Allergy Diarrhea Verified 08/25/17 10:17 prednisone Allergy Anxiety Verified 08/25/17 10:17 repaglinide Allergy Unknown Verified 08/25/17 10:17 Reaction Details Home Medications: Home Medications Acetaminophen SUPP* [Tylenol Supp*] 650 mg KS Q4H PRN 08/25/17 [History Confirmed 08/25/17] Acetaminophen [Acetaminophen Extra Strength] 1,000 mg PO Q8HR PRN 08/25/17 [ History Confirmed 08/25/17] Cholecalciferol TAB* [Vitamin D TAB*] 50,000 unit PO MONTHLY 08/25/17 [History Confirmed 08/25/17] Divalproex DR TAB(*) [Depakote DR TAB(*)] 125 mg PO BID 08/25/17 [History Confirmed 08/25/17] Mycophenolate Mofetil CAP(*) [Cellcept CAP(*)] 250 mg PO BID 08/25/17 [History Confirmed 08/25/17] QUEtiapine TAB* [SEROquel TAB*] 50 mg PO BID 08/25/17 [History Confirmed ] Valsartan TAB* [Diovan TAB*] 80 mg PO DAILY 08/25/17 [History Confirmed 08/25/17 ] PMH/Surg Hx/FS Hx/Imm Hx Previously Healthy: No Endocrine/Hematology History: Reports: Hx Anticoagulant Therapy - coumadin, Hx Blood Transfusions, Hx Diabetes, Hx Anemia - ACUTE BLOOD LOSS WITH TRANSFUSION , Hx Unexplained Bleeding Denies: Hx Thyroid Disease Cardiovascular History: Reports: Hx Coronary Artery Disease, Hx Hypercholesterolemia, Hx Hypertension, Other Cardiovascular Problems/Disorders - left endarterectomy, A-fib Denies: Hx Congestive Heart Failure, Hx Pacemaker/ICD Respiratory History: Reports: Other Respiratory Problems/Disorders Denies: Hx Asthma, Hx Chronic Obstructive Pulmonary Disease (COPD), Hx Pneumonia, Hx Sleep Apnea GI History: Reports: Hx Gastroesophageal Reflux Disease, Hx Gastrointestinal Bleed - per previous records, Hx Hiatal Hernia, Other GI Disorders - esophagitis with bleed Denies: Hx Gall Bladder Disease, Hx Ulcer History: Reports: Hx Benign Prostatic Hyperplasia, Other Problems/ Disorders - BPH Musculoskeletal History: Reports: Hx Arthritis - mild - fingers, Hx Back Problems - LOWER BACK Denies: Hx Gout, Hx Scoliosis, Hx Tendonitis Sensory History: Reports: Hx Cataracts, Hx Contacts or Glasses, Hx Hearing Aid - will not wear Denies: Hx Eye Injury, Hx Eye Prosthesis, Hx Glaucoma, Hx Legally Blind, Hx Macular Degeneration, Hx Vision Problem, Hx Deafness, Hx Hearing Problem Opthamlomology History: Reports: Hx Cataracts, Hx Contacts or Glasses Denies: Hx Eye Injury, Hx Eye Prosthesis, Hx Glaucoma, Hx Legally Blind, Hx Macular Degeneration, Hx Vision Problem Neurological History: Reports: Hx Dementia - forgetfulness - remembers details he doesn't Denies: Hx Developmental Delay, Hx Headaches, Hx Migraine, Hx Nerve Disease, Hx Seizures, Hx Spinal Cord Injury, Hx Transient Ischemic Attacks (TIA) Psychiatric History: Reports: Hx Anxiety - HX OF, CONTROL MED, Hx Depression Denies: Hx Panic Disorder, Hx Suicide Attempt, Hx of Violent Episodes Against Others - Cancer History Hx Chemotherapy: Yes - Surgical History Surgery Procedure, Year, and Place: tonsilectomy; BL hernia surgery; L carotid stent, bilateral knee replacement, LT KNEE TENDON 05/14/14. Hx Anesthesia Reactions: No - Immunization History Date of Influenza Vaccine: 03/2013 Infectious Disease History: Unable to Obtain/Confirm Infectious Disease History: Denies: Hx Clostridium Difficile, Hx Hepatitis, Hx Human Immunodeficiency Virus (HIV), Hx of Known/Suspected MRSA, History Other Infectious Disease, Traveled Outside the [place] in Last 30 Days - Family History Known Family History: Positive: Hypertension - Social History Alcohol Use: Occasionally Alcohol Amount: glass of wine; occasional martini Hx Substance Use: No Substance Use Type: Reports: None Hx Tobacco Use: No Smoking Status (MU): Never Smoked Tobacco Review of Systems Positive: Other - baseline dementia Musculoskeletal: Negative - neck pain, knee pain, ankle pain, arm pain Positive: Other - Facial laceration All Other Systems Reviewed And Are Negative: Yes Physical Exam - Summary Physical Exam Summary: General: well-appearing, no pain distress, patient is able to talk Skin: warm, color reflects adequate perfusion, dry, skin tears on both forearms Head: normal, 4-cm laceration to forehead, 2-cm partial thickness laceration to left cheek Eyes: EOMI, NGHIA ENT: oral mucosa dry Neck: supple, nontender Respiratory: CTA, breath sounds present Cardiovascular: RRR Abdomen: soft, nontender Bowel: present Musculoskeletal: normal, strength/ROM intact Neurological: normal, sensory/motor intact, A&O x3 Psychological: affect/mood appropriate Triage Information Reviewed: Yes Vital Signs On Initial Exam: Initial Vitals Temp Pulse Resp BP Pulse Ox 98.2 F 80 16 113/51 100 08/25/17 10:11 08/25/17 10:11 08/25/17 10:11 08/25/17 10:11 08/25/17 10:11 Vital Signs Reviewed: Yes Procedures - Laceration/Wound Repair 1 Location: face Description: Linear - cleaned w/ surcleanse Anesthesia: Lido - 1% lidocaine Irrigated w/ Saline (ccs): 20 Suture Type: Prolene Number of Sutures: 9 - Simple interrupted sutures 2 Location: face - Left cheek Closure: Skin Adhesive Diagnostics - Vital Signs Vital Signs Temp Pulse Resp BP Pulse Ox 08/25/17 10:11 98.2 F 80 16 113/51 100 - Laboratory Lab Results: Lab Results 08/25/17 08/25/17 08/25/17 Range/Units 10:41 10:41 10:41 WBC (3.5-10.8) 10^3/ul RBC (4.0-5.4) 10^6/ul Hgb (14.0-18.0) g/dl Hct (42-52) % MCV (80-94) fL MCH (27-31) pg MCHC (31-36) g/dl RDW (10.5-15) % Plt Count (150-450) 10^3/ul MPV (7.4-10.4) um3 Neut % (Auto) (38-83) % Lymph % (Auto) (25-47) % [place] % (Auto) (0-7) % Eos % (Auto) (0-6) % Baso % (Auto) (0-2) % Absolute Neuts (auto) (1.5-7.7) 10^3/ul Absolute Lymphs (auto) (1.0-4.8) 10^3/ul Absolute Monos (auto) (0-0.8) 10^3/ul Absolute Eos (auto) (0-0.6) 10^3/ul Absolute Basos (auto) (0-0.2) 10^3/ul Absolute Nucleated RBC 10^3/ul Nucleated RBC % INR (Anticoag Therapy) 0.99 (0.77-1.02) APTT 26.7 (26.0-36.3) seconds Sodium 130 L (133-145) mmol/L Potassium 4.5 (3.5-5.0) mmol/L Chloride 96 L (101-111) mmol/L Carbon Dioxide 28 (22-32) mmol/L Anion Gap 6 (2-11) mmol/L BUN 29 H (6-24) mg/dL Creatinine 1.22 H (0.67-1.17) mg/dL Est GFR ( Amer) 72.4 (>60) Est GFR (Non-Af Amer) 56.3 (>60) BUN/Creatinine Ratio 23.8 H (8-20) Glucose 182 H (70-100) mg/dL Lactic Acid (0.5-2.0) mmol/L Calcium 8.6 (8.6-10.3) mg/dL Magnesium 1.9 (1.9-2.7) mg/dL Total Bilirubin 0.60 (0.2-1.0) mg/dL AST 11 L (13-39) U/L ALT 8 (7-52) U/L Alkaline Phosphatase 38 (34-104) U/L Troponin I 0.00 (<0.04) ng/mL C-Reactive Protein 4.26 (< 5.00) mg/L B-Natriuretic Peptide 492 H ( - 100) pg/mL Total Protein 5.4 L (6.4-8.9) g/dL Albumin 3.4 (3.2-5.2) g/dL Globulin 2.0 (2-4) g/dL Albumin/Globulin Ratio 1.7 (1-3) Lipase 27 (11.0-82.0) U/L TSH 2.08 (0.34-5.60) mcIU/mL Valproic Acid 35.0 L (50-100) mcg/mL 08/25/17 08/25/17 Range/Units 10:41 10:41 WBC 7.1 (3.5-10.8) 10^3/ul RBC 3.46 L (4.0-5.4) 10^6/ul Hgb 10.1 L (14.0-18.0) g/dl Hct 31 L (42-52) % MCV 88 (80-94) fL MCH 29 (27-31) pg MCHC 33 (31-36) g/dl RDW 16 H (10.5-15) % Plt Count 91 L (150-450) 10^3/ul MPV 9 (7.4-10.4) um3 Neut % (Auto) 77.6 (38-83) % Lymph % (Auto) 16.4 L (25-47) % Berrien % (Auto) 4.1 (0-7) % Eos % (Auto) 1.0 (0-6) % Baso % (Auto) 0.9 (0-2) % Absolute Neuts (auto) 5.5 (1.5-7.7) 10^3/ul Absolute Lymphs (auto) 1.2 (1.0-4.8) 10^3/ul Absolute Monos (auto) 0.3 (0-0.8) 10^3/ul Absolute Eos (auto) 0.1 (0-0.6) 10^3/ul Absolute Basos (auto) 0.1 (0-0.2) 10^3/ul Absolute Nucleated RBC 0 10^3/ul Nucleated RBC % 0 INR (Anticoag Therapy) (0.77-1.02) APTT (26.0-36.3) seconds Sodium (133-145) mmol/L Potassium (3.5-5.0) mmol/L Chloride (101-111) mmol/L Carbon Dioxide (22-32) mmol/L Anion Gap (2-11) mmol/L BUN (6-24) mg/dL Creatinine (0.67-1.17) mg/dL Est GFR ( Amer) (>60) Est GFR (Non-Af Amer) (>60) BUN/Creatinine Ratio (8-20) Glucose (70-100) mg/dL Lactic Acid 1.4 (0.5-2.0) mmol/L Calcium (8.6-10.3) mg/dL Magnesium (1.9-2.7) mg/dL Total Bilirubin (0.2-1.0) mg/dL AST (13-39) U/L ALT (7-52) U/L Alkaline Phosphatase (34-104) U/L Troponin I (<0.04) ng/mL C-Reactive Protein (< 5.00) mg/L B-Natriuretic Peptide ( - 100) pg/mL Total Protein (6.4-8.9) g/dL Albumin (3.2-5.2) g/dL Globulin (2-4) g/dL Albumin/Globulin Ratio (1-3) Lipase (11.0-82.0) U/L TSH (0.34-5.60) mcIU/mL Valproic Acid (50-100) mcg/mL Result Diagrams: 08/25/17 10:41 08/25/17 10:41 Lab Statement: Any lab studies that have been ordered have been reviewed, and results considered in the medical decision making process. - Radiology CXR Radiology Interpretation Completed By: Radiologist - No radiographic evidence for acute cardiopulmonary abnormality on this portable chest x-ray. ED physician has reviewed this report. C-Spine Radiology Interpretation Completed By: Radiologist - 1. No calvarial fracture or acute intracranial hemorrhage. 2. No facial bone fractures. 3. There is a type II dens fracture exhibiting approximately 40 degrees of posterior angulation and nondisplaced fractures through the bilateral posterior bodies of the C1 vertebral body. The cervical spine fracture was reported to Dr. Quinn over the telephone at 1130 hours on August 25, 2017. ED physician has reviewed this report. - CT Brain CT Interpretation Completed By: Radiologist - 1. No calvarial fracture or acute intracranial hemorrhage. 2. No facial bone fractures. 3. There is a type II dens fracture exhibiting approximately 40 degrees of posterior angulation and nondisplaced fractures through the bilateral posterior bodies of the C1 vertebral body. The cervical spine fracture was reported to Dr. Quinn over the telephone at 1130 hours on August 25, 2017. ED physician has reviewed this report. Maxillofacial CT Interpretation Completed By: Radiologist - 1. No calvarial fracture or acute intracranial hemorrhage. 2. No facial bone fractures. 3. There is a type II dens fracture exhibiting approximately 40 degrees of posterior angulation and nondisplaced fractures through the bilateral posterior bodies of the C1 vertebral body. The cervical spine fracture was reported to Dr. Quinn over the telephone at 1130 hours on August 25, 2017. ED physician has reviewed this report. - EKG 10:28 Cardiac Rate: NL - 100 BPM EKG Rhythm: Atrial Fibrillation EKG Interpretation: Flipped Ts and V1, V2. Re-Evaluation - Re-Evaluation First Eval Re-Evaluation Time: 11:39 Change: Unchanged Comment: Patient informed of C-spine fracture Laceration Repair Course/Dx - Course Course Of Treatment: Medications reviewed. Allergies noted. [place] COLLAR PLACED IN THE ED. DISCUSSED WITH DR STINSON, NEUOSURGERY, WHO REVIEWED THE CTS. HE RECOMMENDS CERVICAL COLLAR AND F/U OUT PATIENT WITH HIM. RESULTS DISCUSSED WITH PATIENT AND HIS . PATIENT AMBULATED IN ED. DISCHARGED TO [facility]. F/U NEUROSURGERY; RETURN IF WORSE. CRITICAL CARE TIME LESS THAN 30 MINUTES. - Clinical Impression Provider Diagnoses: Cervical spine fracture, Head injury, Face lacerations, Skin tear - Physician Notifications Discussed Care Of Patient With: Reza Stinson Time Discussed With Above Provider: 12:13 Instructed by Provider To: Other - Dr. Stinson (neurosurgery) reviewed fims and recommended a [place] collar. Patient should follow up in office. Discharge - Discharge Plan Condition: Stable Disposition: HOME Patient Education Materials: Head Injury (ED), Cervical Fracture (ED), Skin Tear (ED), Facial Laceration (ED) Referrals: Reza Stinson MD [Medical Doctor] - Mamadou Matos MD [Primary Care Provider] - Additional Instructions: FOLLOW UP WITH NEUROSURGERY, DR STINSON, . YOUR CASE WAS DISCUSSED WITH DR STINSON WHILE YOU WERE IN THE EMERGENCY DEPARTMENT. HE RECOMMENDED YOU WEAR THE COLLAR AT ALL TIMES AND TO FOLLOW UP WITH HIM IN HIS OFFICE. CALL 08/27/17, TO ARRANGE FOLLOW UP. FOLLOW UP WITH YOUR PRIMARY CARE DOCTOR IN 5-7 DAYS FOR SUTURE REMOVAL. PL[address] ANTIBIOTIC OINTMENT ON YOUR WOUNDS. RETURN TO THE EMERGENCY DEPARTMENT FOR ANY WORSENING OF YOUR CONDITION; PAIN, WEAKNESS, NUMBNESS, DIFFICULTY CONTROLLING BOWEL OR BLADDER, YOU FEEL ILL OR QUESTIONS OR CONCERNS. The documentation as recorded by the Gary campbell Tiffany accurately reflects the service I personally performed and the decisions made by me, Cosme Quinn MD.
== END 2017-08-25 14:48 | disposition home or self-care (01) ==
LOC: ED 10:00
DX: S12.001A Unspecified nondisplaced fracture of first cervical vertebra, initial encounter for closed fracture (principal); S09.90XA Unspecified injury of head, initial encounter; S01.412A Laceration without foreign body of left cheek and temporomandibular area, initial encounter; S01.81XA Laceration without foreign body of other part of head, initial encounter; W01.0XXA Fall on same level from slipping, tripping and stumbling without subsequent striking against object, initial encounter; Y93.9 Activity, unspecified; Y92.9 Unspecified place or not applicable; I25.10 Atherosclerotic heart disease of native coronary artery without angina pectoris; I10 Essential (primary) hypertension; I48.91 Unspecified atrial fibrillation; Z79.01 Long term (current) use of anticoagulants; E78.00 Pure hypercholesterolemia, unspecified; K21.9 Gastro-esophageal reflux disease without esophagitis; K44.9 Diaphragmatic hernia without obstruction or gangrene; F03.90 Unspecified dementia, unspecified severity, without behavioral disturbance, psychotic disturbance, mood disturbance, and anxiety; F41.9 Anxiety disorder, unspecified; F32.9 Major depressive disorder, single episode, unspecified; Z95.5 Presence of coronary angioplasty implant and graft; Z96.653 Presence of artificial knee joint, bilateral; Z88.8 Allergy status to other drugs, medicaments and biological substances
CPT/HCPCS: 12014; 36415; 70450; 70486; 71045; 72125; 80053; 80164; 83605; 83690; 83735; 83880; 84443; 84484; 85025; 85610; 85730; 86140; 93005; 99283; A9270-GY

== ENCOUNTER 2017-11-06 00:12 | Emergency (ER) | payer MEDICARE ==
[2017-11-06 01:43] LABS: Hematocrit 31 % (42-52); Hemoglobin 10.1 g/dl (14.0-18.0); Mean Corpuscular HGB Conc 33 g/dl (31-36); Mean Corpuscular Hemoglobin 29 pg (27-31); Mean Corpuscular Volume 88 fL (80-94); Red Blood Count 3.52 10^6/ul (4.0-5.4); Red Cell Distribution Width 16 % (10.5-15); White Blood Count 3.5 10^3/ul (3.5-10.8)
[2017-11-06 01:49] LABS: Urine Appearance Clear; Urine Blood Negative (Negative); Urine Color Amber; Urine Ketones 1+ (Negative); Urine Protein Negative (Negative); Urine Specific Gravity 1.027 (1.010-1.030); Urine Urobilinogen Negative (Negative)
[2017-11-06 01:49] LABS: EGFR Non-African American 74.1 (>60)
[2017-11-06 02:00] LABS: ABS Basophils 0 10^3/ul (0-0.2); ABS Eosinophils 0 10^3/ul (0-0.6); ABS Lymphocytes 0.8 10^3/ul (1.0-4.8); ABS Monocytes 0.2 10^3/ul (0-0.8); ABS Neutrophils 2.4 10^3/ul (1.5-7.7); ABS Nucleated RBC 0 10^3/ul; Eosinophil % 0.8 % (0-6); Lymphocyte % 23.5 % (25-47); Mean Platelet Volume 8.2 um3 (7.4-10.4); Nucleated Red Blood Cells % 0.1; Platelet Count 88 10^3/ul (150-450)
[2017-11-06] MEDS ORDERED: LORazepam TAB(*) 1 MG ONE (02:54)
[2017-11-06] MEDS ORDERED: Haloperidol TAB* 5 MG ONE (02:55)
[2017-11-06] MEDS ORDERED: Haloperidol TAB* 5 MG PO ONE (02:57)
[2017-11-06] MEDS ORDERED: LORazepam TAB(*) 1 MG PO ONE (02:57)
[2017-11-06] MEDS ORDERED: Levofloxacin TAB* 750 MG PO ONE (04:48)
[2017-11-06] MEDS ORDERED: Levofloxacin TAB* 750 MG ONE (05:05)
[2017-11-06 05:25] VITALS: BP 128/82
--- NOTE | 2017-11-06 05:43 | ED ---
Nida Turner Emily, scribed for Zachariah Márquez MD on 11/06/17 at 0120 . 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 The patient rates the pain 0/10 in severity. Symptoms aggravated by nothing. Symptoms alleviated by nothing. - History Of Current Complaint Chief Complaint: EDGeneral Stated Complaint: CONFUSED Time Seen by Provider: 11/06/17 01:05 Hx Obtained From: Family/Time Checker Hx From Patient Unobtainable Due To: Dementia Onset/Duration: Still Present Timing: Constant Severity Initially: Mild Severity Currently: Mild Character: Confusion, Agitation Aggravating Factor(s): Nothing Alleviating Factor(s): Nothing - Allergies/Home Medications Allergies/Adverse Reactions: Allergies Allergy/AdvReac Type Severity Reaction Status Date / Time metformin Allergy Diarrhea Verified 08/25/17 10:17 prednisone Allergy Anxiety Verified 08/25/17 10:17 repaglinide Allergy Unknown Verified 08/25/17 10:17 Reaction Details PMH/Surg Hx/FS Hx/Imm Hx Previously Healthy: No Endocrine/Hematology History: Reports: Hx Anticoagulant Therapy - coumadin, Hx Blood Transfusions, Hx Diabetes, Hx Anemia - ACUTE BLOOD LOSS WITH TRANSFUSION , Hx Unexplained Bleeding Denies: Hx Thyroid Disease Cardiovascular History: Reports: Hx Coronary Artery Disease, Hx Hypercholesterolemia, Hx Hypertension, Other Cardiovascular Problems/Disorders - left endarterectomy, A-fib Denies: Hx Congestive Heart Failure, Hx Pacemaker/ICD Respiratory History: Reports: Other Respiratory Problems/Disorders Denies: Hx Asthma, Hx Chronic Obstructive Pulmonary Disease (COPD), Hx Pneumonia, Hx Sleep Apnea GI History: Reports: Hx Gastroesophageal Reflux Disease, Hx Gastrointestinal Bleed - per previous records, Hx Hiatal Hernia, Other GI Disorders - esophagitis with bleed Denies: Hx Gall Bladder Disease, Hx Ulcer History: Reports: Hx Benign Prostatic Hyperplasia, Other Problems/ Disorders - BPH Musculoskeletal History: Reports: Hx Arthritis - mild - fingers, Hx Back Problems - LOWER BACK Denies: Hx Gout, Hx Scoliosis, Hx Tendonitis Sensory History: Reports: Hx Cataracts, Hx Contacts or Glasses, Hx Hearing Aid - will not wear Denies: Hx Eye Injury, Hx Eye Prosthesis, Hx Glaucoma, Hx Legally Blind, Hx Macular Degeneration, Hx Vision Problem, Hx Deafness, Hx Hearing Problem Opthamlomology History: Reports: Hx Cataracts, Hx Contacts or Glasses Denies: Hx Eye Injury, Hx Eye Prosthesis, Hx Glaucoma, Hx Legally Blind, Hx Macular Degeneration, Hx Vision Problem Neurological History: Reports: Hx Dementia - forgetfulness - remembers details he doesn't Denies: Hx Developmental Delay, Hx Headaches, Hx Migraine, Hx Nerve Disease, Hx Seizures, Hx Spinal Cord Injury, Hx Transient Ischemic Attacks (TIA) Psychiatric History: Reports: Hx Anxiety - HX OF, CONTROL MED, Hx Depression Denies: Hx Panic Disorder, Hx Suicide Attempt, Hx of Violent Episodes Against Others - Cancer History Hx Chemotherapy: Yes - Surgical History Surgery Procedure, Year, and Place: tonsilectomy; BL hernia surgery; L carotid stent, bilateral knee replacement, LT KNEE TENDON 05/14/14. Hx Anesthesia Reactions: No - Immunization History Date of Influenza Vaccine: 03/2013 Infectious Disease History: No Infectious Disease History: Denies: Hx Clostridium Difficile, Hx Hepatitis, Hx Human Immunodeficiency Virus (HIV), Hx of Known/Suspected MRSA, History Other Infectious Disease, Traveled Outside the [place] in Last 30 Days - Family History Known Family History: Positive: Hypertension - Social History Occupation: Retired Lives: [facility] [employer] Alcohol Use: Occasionally Alcohol Amount: glass of wine; occasional martini Hx Substance Use: No Substance Use Type: Reports: None Hx Tobacco Use: No Smoking Status (MU): Never Smoked Tobacco Review of Systems - ROS Summary Review of Systems Summary: ROS LIMITED DUE TO LEVEL 5 CAVEAT - DEMENTIA Neurological: Other - Positive AMS All Other Systems Reviewed And Are Negative: No Physical Exam - Summary Physical Exam Summary: PHYSICAL EXAM LIMITED DUE TO LEVEL 5 CAVEAT - DEMENTIA VITAL SIGNS: Reviewed. GENERAL: ~Patient is a well-developed and nourished (MALE OR FEMALE) who is lying comfortable in the stretcher. Patient is not in any acute respiratory distress. HEAD AND FACE: No signs of trauma. No ecchymosis, hematomas or skull depressions. No sinus tenderness. EYES: PERRLA, EOMI x 2, No injected conjunctiva, no nystagmus. EARS: Hearing grossly intact. Ear canals and tympanic membranes are within normal limits. MOUTH: Oropharynx within normal limits. NECK: Supple, trachea is midline, no adenopathy, no JVD, no carotid bruit, no c- spine tenderness, neck with full ROM. CHEST: Symmetric, no tenderness at palpation LUNGS: Clear to auscultation bilaterally. No wheezing or crackles. CVS: Regular rate and rhythm, S1 and S2 present, no murmurs or gallops appreciated. ABDOMEN: Soft, non-tender. Slightly distended. No rebound no guarding, and no masses palpated. Bowel sounds are normal. EXTREMITIES: FROM in all major joints, no edema, no cyanosis or clubbing. NEURO: Pt is asleep but arousable. Alert. Oriented to person SKIN: Ecchymosis of multiple stages Triage Information Reviewed: Yes Vital Signs On Initial Exam: Initial Vitals Resp BP 19 163/111 11/06/17 00:18 11/06/17 00:18 Vital Signs Reviewed: Yes Diagnostics - Vital Signs Vital Signs Temp Pulse Resp BP Pulse Ox 11/06/17 00:51 97.9 F 82 21 163/111 99 11/06/17 00:48 103 16 161/86 100 11/06/17 00:39 22 138/79 11/06/17 00:20 82 21 100 11/06/17 00:18 19 163/111 - Laboratory Result Diagrams: 11/06/17 01:25 11/06/17 01:25 Lab Statement: Any lab studies that have been ordered have been reviewed, and results considered in the medical decision making process. - Radiology CXR Radiology Interpretation Completed By: ED Physician - CXR reveals, per ED physician, bilateral infiltrate. - CT Head CT CT Interpretation Completed By: Radiologist - Head CT reveals, per radiologist, no gross evidence of acute pathology but the study was limited by motion artifact. ED physician has reviewed this radiology report. Altered Mental Statu Course/Dx - Course Course Of Treatment: LEVEL 5 CAVEAT-DEMENTIA. 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 Head CT reveals, per radiologist, no gross evidence of acute pathology but the study was limited by motion artifact. Bloodwork/UA obtained. Pt will be discharged with follow up from PCP. - Diagnoses Provider Diagnoses: Dementia, Agitation, Pneumonia Discharge - Sign-Out/Discharge Documenting (check all that apply): Discharge/Admit/Transfer - Discharge home - Discharge Plan Condition: Stable Disposition: HOME Patient Education Materials: Altered Mental Status (ED) Referrals: [facility] [facility] [place]Outside] - 3 Days Additional Instructions: RETURN TO THE EMERGENCY DEPARTMENT FOR NEW OR WORSENING SYMPTOMS The documentation as recorded by the Nida campbell Emily accurately reflects the service I personally performed and the decisions made by , Zachariah Márquez MD.
--- NOTE | 2017-11-06 08:18 | RAD ---
Indication: Confusion. Cardiac and respiratory disease. Comparison: August 25, 2017 Technique: Upright AP 0140 hours Report: Moderate prominence of the interstitial markings and mild patchy alveolar consolidation at the bilateral lower lung zones. Grossly clear pleural spaces. Negative for pneumothorax. Negative for cardiomegaly. No gross abnormality of the central pulmonary vasculature with conspicuity limited due to leftward rotation and leftward deviation. IMPRESSION: Stigmata of chronic obstructive pulmonary disease with suggestion of patchy bilateral lower lung zone alveolar infiltrates concerning for pneumonia. No compelling evidence for pulmonary edema.
--- NOTE | 2017-11-06 08:40 | RAD ---
Indication: Confusion. CT of the brain was performed without IV contrast. Ventricular structures are midline. No midline shift is noted. Central and cortical atrophy is noted. There is no evidence of intracranial mass or hemorrhage. No other high or low density lesions are identified. Mastoid air cells demonstrates fluid in the right mastoid air cells. Left mastoid air cells are unremarkable. Paranasal sinuses are clear. Defects in the right posterior arch of C1 consistent with fracture was present on August 25, 2017 and was previously reported. IMPRESSION: No intracranial mass or hemorrhage is noted. Fracture of the right posterior arch of C1 without significant displacement unchanged in position since August 25, 2017.
== END 2017-11-06 05:26 | disposition home or self-care (01) ==
LOC: ED 00:12
DX: F03.90 Unspecified dementia, unspecified severity, without behavioral disturbance, psychotic disturbance, mood disturbance, and anxiety (principal); R45.1 Restlessness and agitation; J18.9 Pneumonia, unspecified organism; E11.9 Type 2 diabetes mellitus without complications; Z79.4 Long term (current) use of insulin; D64.9 Anemia, unspecified; I25.10 Atherosclerotic heart disease of native coronary artery without angina pectoris; I10 Essential (primary) hypertension; I48.91 Unspecified atrial fibrillation; Z79.01 Long term (current) use of anticoagulants; E78.00 Pure hypercholesterolemia, unspecified; K21.9 Gastro-esophageal reflux disease without esophagitis; K44.9 Diaphragmatic hernia without obstruction or gangrene; N40.0 Benign prostatic hyperplasia without lower urinary tract symptoms; F41.9 Anxiety disorder, unspecified; F32.9 Major depressive disorder, single episode, unspecified; Z95.5 Presence of coronary angioplasty implant and graft; Z96.653 Presence of artificial knee joint, bilateral; Z88.8 Allergy status to other drugs, medicaments and biological substances
CPT/HCPCS: 36415; 70450; 71045; 80053; 81003; 85025; 85060; 99283; A9270-GY

== ENCOUNTER 2017-11-07 04:57 | Observation (INO) | payer MEDICARE ==
[2017-11-07] MEDS ORDERED: NS 0.9% 1000 ML* 1,000 ML IV ONE (05:02)
[2017-11-07] MEDS ORDERED: methylPREDNISolone 125 MG* 2 ML VIAL IV ONE (05:03)
[2017-11-07] MEDS ORDERED: Magnesium Sulfate 2 GM IV* 2 GM/50 ML BAG IVPB ONE (05:03)
[2017-11-07] MEDS ORDERED: Piperacillin/Tazobac ADVAN(*) 3.375 GM in NS 0.9% 100 ML* 100 ML IVPB ONE (05:03)
[2017-11-07] MEDS ORDERED: Azithromycin IV(*) 500 MG in NS 0.9% 250 ML* 250 ML IVPB STA (05:07)
[2017-11-07] MEDS: Albuterol 2.5 MG/3 ML NEB.SOL* (0.083%) INH PRN ×2 (05:30→05:32)
[2017-11-07 05:44] LABS: ABS Basophils 0 10^3/ul (0-0.2); ABS Eosinophils 0 10^3/ul (0-0.6); ABS Lymphocytes 0.8 10^3/ul (1.0-4.8); ABS Monocytes 0.4 10^3/ul (0-0.8); ABS Neutrophils 2.9 10^3/ul (1.5-7.7); ABS Nucleated RBC 0 10^3/ul; Eosinophil % 0.5 % (0-6); Hematocrit 29 % (42-52); Hemoglobin 9.6 g/dl (14.0-18.0); Lymphocyte % 19.1 % (25-47); Mean Corpuscular HGB Conc 33 g/dl (31-36); Mean Corpuscular Hemoglobin 29 pg (27-31); Mean Corpuscular Volume 87 fL (80-94); Mean Platelet Volume 8.6 um3 (7.4-10.4); Nucleated Red Blood Cells % 0; Platelet Count 99 10^3/ul (150-450); Red Blood Count 3.31 10^6/ul (4.0-5.4); Red Cell Distribution Width 16 % (10.5-15); White Blood Count 4.1 10^3/ul (3.5-10.8)
[2017-11-07 05:48] LABS: INR 1.06 (0.77-1.02)
[2017-11-07 05:58] LABS: EGFR Non-African American 84.1 (>60)
--- NOTE | 2017-11-07 06:52 | ED ---
Ankush Turner Gabriel, scribed for Zachariah Márquez MD on 11/07/17 at 0510 . Respiratory - HPI Summary HPI Summary: This patient is a 87 year old M BIBA to [facility] from his care home for respiratory distress. The pt was recently seen in the ED and diagnosed with bilateral PNA, today his care home reports O2 sat of 60% on room air. Given levaquin PO yesterday but he is now worse LEVEL 5 CAVEAT: Exam limited due to the patients severe dementia - History of Current Complaint Stated Complaint: SOB Time Seen by Provider: 11/07/17 04:58 Hx Obtained From: Patient Onset/Duration: Still Present Timing: Constant Initial Severity: Moderate Current Severity: Moderate - Allergy/Home Medications Allergies/Adverse Reactions: Allergies Allergy/AdvReac Type Severity Reaction Status Date / Time metformin Allergy Diarrhea Verified 08/25/17 10:17 prednisone Allergy Anxiety Verified 08/25/17 10:17 repaglinide Allergy Unknown Verified 08/25/17 10:17 Reaction Details PMH/Surg Hx/FS Hx/Imm Hx Endocrine/Hematology History: Reports: Hx Anticoagulant Therapy - coumadin, Hx Blood Transfusions, Hx Diabetes, Hx Anemia - ACUTE BLOOD LOSS WITH TRANSFUSION , Hx Unexplained Bleeding Denies: Hx Thyroid Disease Cardiovascular History: Reports: Hx Coronary Artery Disease, Hx Hypercholesterolemia, Hx Hypertension, Other Cardiovascular Problems/Disorders - left endarterectomy, A-fib Denies: Hx Congestive Heart Failure, Hx Pacemaker/ICD Respiratory History: Reports: Other Respiratory Problems/Disorders Denies: Hx Asthma, Hx Chronic Obstructive Pulmonary Disease (COPD), Hx Pneumonia, Hx Sleep Apnea GI History: Reports: Hx Gastroesophageal Reflux Disease, Hx Gastrointestinal Bleed - per previous records, Hx Hiatal Hernia, Other GI Disorders - esophagitis with bleed Denies: Hx Gall Bladder Disease, Hx Ulcer History: Reports: Hx Benign Prostatic Hyperplasia, Other Problems/ Disorders - BPH Musculoskeletal History: Reports: Hx Arthritis - mild - fingers, Hx Back Problems - LOWER BACK Denies: Hx Gout, Hx Scoliosis, Hx Tendonitis Sensory History: Reports: Hx Cataracts, Hx Contacts or Glasses, Hx Hearing Aid - will not wear Denies: Hx Eye Injury, Hx Eye Prosthesis, Hx Glaucoma, Hx Legally Blind, Hx Macular Degeneration, Hx Vision Problem, Hx Deafness, Hx Hearing Problem Opthamlomology History: Reports: Hx Cataracts, Hx Contacts or Glasses Denies: Hx Eye Injury, Hx Eye Prosthesis, Hx Glaucoma, Hx Legally Blind, Hx Macular Degeneration, Hx Vision Problem Neurological History: Reports: Hx Dementia - forgetfulness - remembers details he doesn't Denies: Hx Developmental Delay, Hx Headaches, Hx Migraine, Hx Nerve Disease, Hx Seizures, Hx Spinal Cord Injury, Hx Transient Ischemic Attacks (TIA) Psychiatric History: Reports: Hx Anxiety - HX OF, CONTROL MED, Hx Depression Denies: Hx Panic Disorder, Hx Suicide Attempt, Hx of Violent Episodes Against Others - Cancer History Hx Chemotherapy: Yes - Surgical History Surgery Procedure, Year, and Place: tonsilectomy; BL hernia surgery; L carotid stent, bilateral knee replacement, LT KNEE TENDON 05/14/14. Hx Anesthesia Reactions: No - Immunization History Date of Influenza Vaccine: 03/2013 Infectious Disease History: Denies: Hx Clostridium Difficile, Hx Hepatitis, Hx Human Immunodeficiency Virus (HIV), Hx of Known/Suspected MRSA, History Other Infectious Disease - Family History Known Family History: Positive: Hypertension - Social History Alcohol Use: Occasionally Alcohol Amount: glass of wine; occasional martini Hx Substance Use: No Substance Use Type: Reports: None Hx Tobacco Use: No Smoking Status (MU): Never Smoked Tobacco Review of Systems Positive: Fatigue Respiratory: Other - distress Positive: Shortness Of Breath All Other Systems Reviewed And Are Negative: No Physical Exam - Summary Physical Exam Summary: VITAL SIGNS: Reviewed. GENERAL: Patient is a well-developed and nourished male who is lying comfortable in the stretcher. Patient is in mild respiratory distress. HEAD AND FACE: No signs of trauma. No ecchymosis, hematomas or skull depressions. No sinus tenderness. EYES: PERRLA, EOMI x 2, No injected conjunctiva, no nystagmus. EARS: Ear canals and tympanic membranes are within normal limits. MOUTH: Oropharynx within normal limits. NECK: pt has c-collar on because he has a history of c-spine facture, he has been wearing it for months CHEST: Symmetric, no tenderness at palpation LUNGS: decreased breath sounds with bilateral rhonchi CVS: Regular rate and rhythm, S1 and S2 present, no murmurs or gallops appreciated. ABDOMEN: Soft, non-tender. No signs of distention. No rebound no guarding, and no masses palpated. Bowel sounds are normal. EXTREMITIES: FROM in all major joints, no edema, no cyanosis or clubbing. NEURO: sleepy but arouses to loud voice. grossly non focal SKIN: Dry and warm Triage Information Reviewed: Yes Vital Signs Reviewed: Yes Completion Of Physical Exam Limited Due To: Dementia, Level 5 Diagnostics - Laboratory Result Diagrams: 11/07/17 05:15 11/07/17 05:15 Lab Statement: Any lab studies that have been ordered have been reviewed, and results considered in the medical decision making process. - Radiology CXR Radiology Interpretation Completed By: ED Physician - bilateral PNA and venous congestion. Pending final report Disposition - Course Assessment/Plan: This patient is a 87 year old M BIBA to [facility] from his care home for respiratory distress. The pt was recently seen in the ED and diagnosed with bilateral PNA, today his care home reports O2 sat of 60% on room air. Given levaquin PO but he is now worse. LEVEL 5 CAVEAT: Exam limited due to the patients severe dementia. CXR reveals, bilateral PNA and venous congestion. Dx PNA. Blood work and blood gas obtained. In the ED course the patient was given IV fluids and a breathing treatment. We discussed patient care with Dr. Messer and they accepted the patient for admission. Patient will be admitted. The patient is agreeable with this plan. - Diagnoses Provider Diagnoses: PNA (pneumonia) Discharge - Sign-Out/Discharge Documenting (check all that apply): Discharge/Admit/Transfer - admitted to Dr. Butler - Discharge Plan Condition: Fair Disposition: ADMITTED TO [facility] Referrals: Mamadou Matos MD [Primary Care Provider] - The documentation as recorded by the Ankush campbell Gabriel accurately reflects the service I personally performed and the decisions made by me, Zachariah Márquez MD.
--- NOTE | 2017-11-07 08:00 | RAD ---
Indication: Apnea, lethargy. CT of the brain performed without IV contrast. The study is limited due to motion artifact. Patient is uncooperative. Grossly ventricular structures are midline. No midline shift is noted. There is central and cortical atrophy noted. No obvious intracranial mass or hemorrhage is noted although the study is limited due to motion artifact. Mastoid air cells are and paranasal sinuses are grossly unremarkable. IMPRESSION: The study is limited by motion artifact. No obvious mass is noted.
--- NOTE | 2017-11-07 08:11 | RAD ---
Indication: Confusion. CT of the cervical spine was obtained in the axial plane. Sagittal and coronal reconstructed images were obtained. Comparison is made with previous exam dated August 25, 2017. The skull base demonstrates no definite fracture. Mastoid air cells are unremarkable. Again noted is a fracture at the base of the odontoid process. There is dorsal angulation of the odontoid process midportion of the fracture line. Spinal canal appears to be intact. Fractures of the posterior elements of C1 are noted. This is unchanged from previous exam. Disc space narrowing at C5-C6, C6-C7 and C7-T1 is noted. Multilevel facet arthropathy is noted. IMPRESSION: Fracture of the odontoid process with angulation similar to that seen previously on August 25, 2017. Fractures of the posterior elements bilaterally of C1 which is also unchanged from previous exam.
[2017-11-07] MEDS ORDERED: Morphine VIAL* 4 MG/ML VIAL (1 ml vial) IV PRN (08:29)
[2017-11-07] MEDS ORDERED: Acetaminophen TAB* 325 MG PO PRN (08:29)
[2017-11-07] MEDS ORDERED: Haloperidol INJ IV/IM* 5 MG/ML AMP IV SLOW PU PRN (08:29)
[2017-11-07] MEDS ORDERED: LORazepam INJ* 2 MG/ML 1 ML VIAL IV PUSH PRN (08:30)
--- NOTE | 2017-11-07 08:36 | RAD ---
Indication: Shortness of breath. Single frontal view of the chest performed at 0523 hours was reviewed. Comparison is made with previous exam dated November 06, 2017. Cardiomegaly is noted. Interstitial edema consistent with vascular congestion is noted. No alveolar consolidation is noted. IMPRESSION: Cardiomegaly with interstitial edema consistent with vascular congestion.
[2017-11-07] MEDS ORDERED: Acetaminophen SUPP* 650 MG SUPP PR PRN (09:49)
[2017-11-07] MEDS: Morphine ORAL CONCENTRATE* 5 MG/0.25 ML ORAL.SYRIN SL PRN ×2 (12:00→18:00)
--- NOTE | 2017-11-07 20:05 | HP ---
Cc: KASSY Reynaga; Shayan Maguire; Mona Carranza from [facility].* HISTORY AND PHYSICAL: DATE OF ADMISSION: 11/07/17 PRIMARY CARE PROVIDER: Provider from [facility]. CHIEF COMPLAINT: Problems with breathing. HISTORY OF PRESENT ILLNESS: Aleksandr Bruno is an 87-year-old male with history of advanced dementia with periods of agitation who presented to the hospital on 11/06/17 with agitation. He received Ativan and Haldol and seemed much calmer and he was sent back to [facility]. Today in the morning, he was noted to be desaturating and lethargic. The patient was evaluated and noted to possibly have acute hypoxemic respiratory failure for possible pneumonia or CHF. The patient's presentation and his recent worsening problems with his dementia and agitation was discussed with Mrs. Bruno, patient's . The patient's stated that patient had not been himself for several months now. He gets very angry at the penit[facility] and agitated. He fell in August of 2017 and fractured the dens of C2 of cervical spine. Since then, he had been in C-spine collar. He had been covered with bruises from multiple falls in the past. At this point , Mrs. Bruno wished for the patient to be comfort care. The patient is going to be admitted to the hospital with comfort care measures only. PAST MEDICAL HISTORY: 1. Dementia with periods of agitation. 2. Diabetes. 3. Hyperlipidemia. 4. History of coronary artery disease. 5. History of bullous pemphigoid. 6. Hypertension. 7. History of GI bleed. 8. History of atrial fibrillation. 9. Depression. 10. BPH. 11. Insomnia. 12. Obstructive sleep apnea. 13. History of recent C2 vertebral fracture. 14. History of bilateral total knee replacements. 15. Hernia repair. 16. Carotid endarterectomy. 17. History of quadriceps repair. 18. TURP in the past. MEDICATIONS: At [facility] include, 1. Prednisone 10 mg daily. 2. Diovan 80 mg daily. 3. Seroquel 50 mg b.i.d. 4. Paxil 40 mg daily. 5. CellCept 250 mg b.i.d. 6. Metoprolol tartrate 75 mg b.i.d. 7. Levaquin 750 mg daily. 8. Insulin Lantus 15 units q.a.m. 9. Depakote DR 125 mg b.i.d. 10. Vitamin D 50,000 units monthly. 11. Aspirin 81 daily. 12. Acetaminophen on p.r.n. basis. FAMILY HISTORY: Unobtainable from this patient who is currently nonverbal. 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 His surrogate is his , present in the room. REVIEW OF SYSTEMS: Please see history of present illness, otherwise not obtainable from patient due to marked lethargy. PHYSICAL EXAMINATION GENERAL: The patient is an 87-year-old male lying in bed and unresponsive to voice, responds to pain withdrawing in all 4 extremities. He appears in no acute distress although mildly tachypneic. VITAL SIGNS: Blood pressure 125/75, heart rate of 103 and irregular, respiratory rate 20, oxygen saturation 99% on 2 L of oxygen via nasal cannula, temperature of 97.6. HEENT: Head: Atraumatic, normocephalic. Eyes: Pupils are pinpoint, minimally reactive to light bilaterally. Oropharynx clear. Mucosa dry. NECK: Supple. No JVD. No bruits bilaterally. RESPIRATORY: Very decreased breath sounds at bilateral bases. Poor air entry noted with each inspiration. CARDIOVASCULAR: Regularly irregular rhythm. No murmur. ABDOMEN: Soft and nontender. Bowel sounds present in all 4 quadrants. EXTREMITIES: There is no edema. Pulses +2 bilaterally. There is no clubbing or cyanosis. NEUROLOGIC: The patient withdraws to pain with equal strength. He is currently nonverbal. Markedly lethargic. Mildly tachypneic. SKIN: On evaluation of the skin, the patient has a large abrasion on his calf posterior and on the right side. He has multiple skin tears, ecchymotic areas overlying the bilateral legs. LABORATORY DATA: Showed white blood cell count 4.1, hemoglobin is 9.6, hematocrit of 29 and platelets of 99 which appears chronic. Sodium was 129, potassium 4.1, chloride 96, carbon dioxide 28, BUN 18, creatinine 0.86, brain natriuretic peptide was 757, C-reactive protein was 19, procalcitonin below 0.1. Cervical spine CT documented today, impression "fracture of the uncinate process where angulation is similar to that seen previously on 08/15/17. Fracture of the posterior elements of bilateral C1 which is also unchanged from previous exam." Portable chest x-ray noted today, impression "cardiomegaly with interstitial edema consistent with vascular congestion." ASSESSMENT AND PLAN: The patient is an 87-year-old male with history of dementia with periods of agitation who got agitated the day prior to current admission, got sedatives in the emergency department, now presents with what appears to be congestive heart failure and acute respiratory failure with hypoxemia. Possible aspiration. The patient is lethargic. His is present in the room, who just wants the patient to be comfort care due to his chronic and worsening dementia with agitation at penitentiary. At this point, the patient is going to be placed on comfort care orders only. We will start morphine, Ativan, Haldol on p.r.n. basis. If patient is able to take p.o., we will continue his p.o. medications which includes Depakote DR and Seroquel. I will also continue his Paxil if he is able to do that. In regards to the patient's history of bullous pemphigoid, for the time being I will continue his prednisone and his CellCept. The patient has had history of rebound skin lesions in the past when his medications were stopped and would be uncomfortable for him if that happened. In regards to his diabetic medication, he is going to be placed on regular diet and his sugars are not going to be checked due to his comfort orders. The patient's code status is DNR. Comfort care orders were also signed by patient's at the point of admission. I will discuss with rn case manager hospice in regards to further treatment of this patient. Whether he can remain in hospital on comfort measures or can he be brought back to [facility] with hospice. TIME SPENT: Approximately 65 minutes was spent on admission of this patient, approximately 40 minutes was spent in patient's room and evaluation of the patient and discussion with patient's family present in the room in regards to comfort care measures. [id number]/[facility] #: [id number] GHANSHYAM
[2017-11-07] MEDS: Divalproex DR TAB(*) 125 MG PO SCH (22:36)
[2017-11-07] MEDS: Mycophenolate Mofetil CAP(*) 250 MG PO SCH (22:36)
[2017-11-07] MEDS: QUEtiapine TAB* 25 MG PO SCH (22:37)
[2017-11-08] MEDS: Divalproex DR TAB(*) 125 MG PO SCH (07:50)
[2017-11-08] MEDS: Mycophenolate Mofetil CAP(*) 250 MG PO SCH (07:50)
[2017-11-08] MEDS: Morphine ORAL CONCENTRATE* 5 MG/0.25 ML ORAL.SYRIN SL PRN (07:51)
[2017-11-08] MEDS: QUEtiapine TAB* 25 MG PO SCH (07:51)
[2017-11-08 07:52] VITALS: BP 152/100
[2017-11-08] MEDS ORDERED: PARoxetine HCL TAB* 40 MG PO SCH (09:00)
[2017-11-08] MEDS ORDERED: predniSONE TAB* 10 MG PO SCH (09:00)
[2017-11-08] MEDS ORDERED: Haloperidol INJ IV/IM* 5 MG/ML AMP IM PRN (10:54)
[2017-11-08] MEDS ORDERED: Morphine ORAL CONCENTRATE* 5 MG/0.25 ML ORAL.SYRIN SL PRN (10:54)
--- NOTE | 2017-11-08 12:13 | DS ---
CC: [facility]; Dr. Steffany Gerber. DISCHARGE SUMMARY: DATE OF ADMISSION: 11/07/17 DATE OF DISCHARGE: 11/08/17 PRIMARY CARE PROVIDER: From [facility]. DISCHARGE DIAGNOSIS: Acute respiratory failure, suspected aspiration. The patient is in comfort care. SECONDARY DIAGNOSIS: 1. History of dementia with agitation. 2. Diabetes. 3. Hyperlipidemia. 4. History of atrial fibrillation. 5. History of bullous pemphigoid. 6. Hypertension. 7. History of gastrointestinal bleed. 8. Depression. 9. BPH. 10. Insomnia. 11. Obstructive sleep apnea. 12. History of recent C2 vertebral body fracture. 13. Bilateral total knee replacements in the past. 14. History of carotid endarterectomy. MEDICATIONS AT DISCHARGE: Include: 1. Morphine oral concentrate 10 mg every 2 hours p.r.n. pain or discomfort. 2. Haldol 5 mg IM every 4 hours p.r.n. agitation. 3. Depakote 125 mg p.o. b.i.d. if able to take p.o. 4. Atropine sublingual solution 1% two drops every 2 hours for secretions. 5. Acetaminophen suppository 650 mg per rectum every 4 hours for pain or fever. 6. CellCept 250 mg b.i.d. if the patient is able to take p.o. 7. Paroxetine 40 mg daily, if able to take p.o. 8. Prednisone 10 mg daily, if able to take p.o. 9. Seroquel 50 mg b.i.d. if able to take p.o. HOSPITALIZATION COURSE: Aleksandr Bruno is an 87-year-old male who presented to the hospital after an episode of agitation for which he was treated with Haldol. He presented with respiratory failure, likely aspiration, and possible congestive heart failure. 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 The patient also has a history of recent falls with C-spine fracture and need of wearing a C-spine collar at all times. At this point, the patient's requested for the patient to be placed on comfort care. He was admitted to comfort care and treated with morphine on an as needed basis. We discussed the case with the providers from hospice care. The patient at this point is going to be discharged back to [facility] and Hospice care is planning to sign the patient into hospice on 11/09/17. PHYSICAL EXAMINATION: At the time of discharge: Blood pressure of 162/100, heart rate of 107 and regular, respiratory rate 14, oxygen saturation 100% on 2 L of oxygen nasal cannula, and temperature 97.1. General: The patient is 87 yo male , lying in bed with sonorous breathing, not responding to voice, withdraws to pain, occasionally talks to himself, not following any commands. HEENT: Head is atraumatic and normocephalic. Eyes: Pupils are pinpoint, minimally reactive to light. Oropharynx with dry mucous membranes. Neck: C- spine collar in place. Respiratory: Very poor air entry with crackles at bilateral upper lung leyva. Abdomen: Soft and nontender, bowel sounds present in all 4 quadrants. Extremities: There is no edema, pulses are +2 bilaterally, no clubbing or cyanosis. On evaluation of the skin, the patient has small stage 2 decubitus on his bottom. He also has several abrasions and ecchymotic areas scattered overlying his bilateral lower extremities. Neuro Evaluation: The patient withdraws to pain in all 4 extremities equally. The patient is being discharged on comfort care orders, with orders to do not rehospitalize back to [facility] for hospice. [id number]/[facility] #: [id number] MTDD
== END 2017-11-08 12:40 ==
LOC: ED 04:57 → INTOOBSV 08:26 → MED 08:26
PROVIDERS: ADMIT Internal Medicine; ATTEND Internal Medicine
DX: J96.00 Acute respiratory failure, unspecified whether with hypoxia or hypercapnia (principal); F03.91 Unspecified dementia, unspecified severity, with behavioral disturbance; E11.9 Type 2 diabetes mellitus without complications; E78.5 Hyperlipidemia, unspecified; I48.91 Unspecified atrial fibrillation; I10 Essential (primary) hypertension; N40.0 Benign prostatic hyperplasia without lower urinary tract symptoms; G47.33 Obstructive sleep apnea (adult) (pediatric); Z79.899 Other long term (current) drug therapy; L12.0 Bullous pemphigoid; Z88.8 Allergy status to other drugs, medicaments and biological substances; Z79.82 Long term (current) use of aspirin; I51.7 Cardiomegaly; R06.02 Shortness of breath
CPT/HCPCS: 36415; 70450; 71045; 72125; 80053; 82803; 83605; 83880; 84145; 84484; 85025; 85610; 85730; 86140; 87040; 87641; 96365; 96366; 96367; 96372; 96375; 99284; A9270-GY; G0378; J0456; J1630; J2060; J2543; J2930; J3475